=== PATIENT | female | born 1935 | race Caucasian/White ===

== ENCOUNTER → 2017-09-05 | Outpatient (CLI) | payer MEDICARE, BC | END | disposition home or self-care (01) | LOC: LABWHC1 12:47 | PROVIDERS: ATTEND Internal Medicine Nephrology | DX: E03.9 Hypothyroidism, unspecified (principal) | CPT/HCPCS: 36415; 84443 ==

== ENCOUNTER → 2020-11-10 | Outpatient (CLI) | payer MEDICARE, BC | END | disposition home or self-care (01) | LOC: LABWHC1 13:14 | PROVIDERS: ATTEND Internal Medicine Nephrology | DX: Z53.9 Procedure and treatment not carried out, unspecified reason (principal) ==

== ENCOUNTER 2023-05-20 08:55 | Inpatient (IN) | payer MEDICARE, BC ==
[2023-05-20] MEDS ORDERED: HEPARIN SODIUM 1,000 UN/ML (10ML VL) IV PRN (09:24)
--- NOTE | 2023-05-20 09:30 | ED ---
Weakness HPI - General Chief complaint: Weakness Stated complaint: Weakness, AMA Time Seen by Provider: 05/20/23 09:06 Source: patient, family, RN notes reviewed Mode of arrival: wheelchair Limitations: altered mental status - History of Present Illness Initial comments: This is an 87-year-old female who presents to the emergency department for weakness. Patient presents with her , who provides the majority of the information. States that her mental status has been declining over the last few years and she is becoming more and more confused. However, over the last couple of days she has been sleeping more than normal and is also incontinent, which is not usual for her. She does also have some swelling in her right leg which started yesterday. Patient denies any chest pain or shortness of breath. States that the leg is only painful when pressed. MD Complaint: generalized weakness - Related Data Home Medications Medication Instructions Recorded Confirmed Atorvastatin [Lipitor] 20 mg PO DAILY 06/07/22 05/20/23 Estrogen,Con/M-Progest Acet 0.5 tab PO DAILY 06/07/22 05/20/23 [Prempro 0.3 mg-1.5 mg Tablet] Famotidine [Pepcid] 20 mg PO DAILY 06/07/22 05/20/23 Levothyroxine Sodium [Synthroid] 25 mcg PO Q2D 06/07/22 05/20/23 Levothyroxine Sodium [Synthroid] 50 mcg PO Q2D 06/07/22 05/20/23 Losartan [Cozaar] 50 mg PO DAILY 06/07/22 05/20/23 Allergies Allergy/AdvReac Type Severity Reaction Status Date / Time morphine AdvReac Nausea & Verified 05/20/23 09:42 Vomiting Review of Systems ROS Statement: Those systems with pertinent positive or pertinent negative responses have been documented in the HPI. ROS Other: All systems not noted in ROS Statement are negative. Past Medical History Past Medical History: Cancer, Hyperlipidemia, Hypertension Past Surgical History: Joint Replacement Additional Past Surgical History / Comment(s): bilat mastectomy Past Psychological History: No Psychological Hx Reported Smoking Status: Never smoker Past Alcohol Use History: None Reported Past Drug Use History: None Reported General Exam Limitations: altered mental status General appearance: alert, in no apparent distress Head exam: Present: atraumatic, normocephalic, normal inspection Respiratory exam: Present: normal lung sounds bilaterally. Absent: respiratory distress, wheezes, rales, rhonchi, stridor Cardiovascular Exam: Present: tachycardia, irregular rhythm Extremities exam: Present: other (Pitting edema to the bilateral lower extremities, worse on the right, with calf tenderness.) Neurological exam: Present: alert, oriented X3, CN II-XII intact Psychiatric exam: Present: normal affect, normal mood Skin exam: Present: warm, dry, intact, normal color. Absent: rash Course Vital Signs 05/20/23 05/20/23 09:01 12:42 Temperature 97.6 F Pulse Rate 170 H 107 H Respiratory 18 20 Rate Blood Pressure 112/68 114/87 O2 Sat by Pulse 99 100 Oximetry Medical Decision Making - Medical Decision Making This is an 87-year-old female who presents to the emergency department for weakness. Was pt. sent in by a medical professional or institution? @ -No Did you speak to anyone other than the patient for history? @ -Her provided the majority of the information. Did you review nursing and triage notes? @ -Yes, and I agree, it is accurate with regards to the patient's symptoms. Were old charts reviewed? @ -No Differential Diagnosis? @ -Differential Weakness: Hypoglycemia, shock, sepsis, hyponatremia, anemia, infection, DE, ETOH, adverse medicine reaction, overdose, stroke, this is not meant to be an all-inclusive list. EKG interpreted by me (3pts min.)? @ -EKG interpreted by me demonstrating the following: Atrial fibrillation with rapid ventricular response. Ventricular rate 155 bpm, QRS duration 80 ms, QTC 349 ms. X-rays interpreted by me (1pt min.)? @ -Chest x-ray obtained, my interpretation identifies no localized consolidations or infiltrates. CT interpreted by me (1pt min.)? @ -CTA of the chest obtained. My interpretation identifies no evidence of a pulmonary embolus. U/S interpreted by me (1pt. min.)? @ -Duplex US of the bilateral lower extremities obtained. My interpretation identifies no evidence of a DVT. What testing was considered but not performed? (CT, X-rays, U/S, labs)? Why? @ -None What meds were considered but not given? Why? @ -None Did you discuss the management of the patient with other professionals? @ -Yes, Dr. Arthur, who accepts the patient for admission. Did you reconcile home meds? @ -Yes Was smoking cessation discussed for >3mins.? @ -No Was critical care preformed (if so, how long)? @ -Yes, >35 minutes Were there social determinants of health that impacted care today? How? (Homelessness, low income, unemployed, alcoholism, drug addiction, transportation, low edu. Level, literacy, decrease access to med. care, assisted, rehab)? @ -No Was there de-escalation of care discussed even if they declined? (Discuss DNR or withdrawal of care, Hospice)? @ -No What co-morbidities impacted this encounter? (DM, HTN, Smoking, COPD, CAD, Cancer, CVA, Hep., AIDS, mental health diagnosis, sleep apnea, morbid obesity)? @ -HTN, HLD Was patient admitted / discharged? @ -Admitted. Patient in a-fib with RVR on arrival with her heart rate ranging from 150-175 BPM. Patient has no hx of a-fib and is not taking any blood thinners. Lab work demonstrates an elevated d-dimer of 1.43, elevated troponin of 0.44, and low magnesium of 1.2. Chest x-ray obtained demonstrating no acute cardiopulmonary process. Duplex ultrasound of the bilateral lower extremities obtained due to the swelling. No evidence of a DVT or other acute process was identified. CTA of the chest was obtained as well due to her symptoms and the new onset A. fib with RVR. No evidence of a pulmonary embolus was identified. She was given 400 mg of magnesium oxide and 2 grams of magnesium sulfate for the hypomagnesemia. Patient admitted to medicine for new onset a-fib and a-fib with RVR. She was also started on Cardizem and heparin drips. Serial troponins ordered and consult placed for cardiology. Consult placed for neurology as well per her family's request based on patient having increasing confusion and their concern for dementia. Undiagnosed new problem with uncertain prognosis? @ -None Drug Therapy requiring intensive monitoring for toxicity (Heparin, Nitro, Insulin, Cardizem)? @ -Cardizem and heparin Were any procedures done? @ -None Diagnosis/symptom? @ -New onset a-fib, a-fib with RVR, hypomagnesemia Acute, or Chronic, or Acute on Chronic? @ -Acute Uncomplicated (without systemic symptoms) or Complicated (systemic symptoms)? @ -Complicated Side effects of treatment? @ -None Exacerbation, Progression, or Severe Exacerbation] @ -Not applicable Poses a threat to life or bodily function? @ -Yes This case was discussed in detail with the attending ED physician, Dr. Ellis. Presentation, findings, and treatment plan discussed in detail as well. - Lab Data Result diagrams: 05/20/23 09:27 05/20/23 09:27 Lab Results 05/20/23 05/20/23 05/20/23 Range/Units 09:27 09: 09:27 WBC 8.0 (3.8-10.6) k/uL RBC 4.01 (3.80-5.40) m/uL Hgb 12.8 (11.4-16.0) gm/dL Hct 38.7 (34.0-46.0) % MCV 96.5 (80.0-100.0) fL MCH 32.0 (25.0-35.0) pg MCHC 33.1 (31.0-37.0) g/dL RDW 12.2 (11.5-15.5) % Plt Count 370 (150-450) k/uL MPV 7.8 Neutrophils % 64 % Lymphocytes % 22 % Monocytes % 8 % Eosinophils % 2 % Basophils % 1 % Neutrophils # 5.1 (1.3-7.7) k/uL Lymphocytes # 1.8 (1.0-4.8) k/uL Monocytes # 0.6 (0-1.0) k/uL Eosinophils # 0.2 (0-0.7) k/uL Basophils # 0.1 (0-0.2) k/uL PT 10.8 (10.0-12.5) sec INR 1.0 (<1.2) APTT 21.2 L (22.0-30.0) sec D-Dimer 1.43 H (<0.60) mg/L FEU Sodium 138 (137-145) mmol/L Potassium 3.8 (3.5-5.1) mmol/L Chloride 103 (98-107) mmol/L Carbon Dioxide 24 (22-30) mmol/L Anion Gap 11 mmol/L BUN 29 H (7-17) mg/dL Creatinine 1.05 H (0.52-1.04) mg/dL Est GFR (CKD-EPI)AfAm 56 (>60 ml/min/1.73 sqM) Est GFR (CKD-EPI)NonAf 49 (>60 ml/min/1.73 sqM) Glucose 123 H (74-99) mg/dL Plasma Lactic Acid Vincenzo (0.7-2.0) mmol/L Calcium 12.3 H (8.4-10.2) mg/dL Phosphorus (2.5-4.5) mg/dL Magnesium (1.6-2.3) mg/dL Total Bilirubin 0.7 (0.2-1.3) mg/dL AST 43 H (14-36) U/L ALT 30 (4-34) U/L Alkaline Phosphatase 53 (38-126) U/L Troponin I (0.000-0.034) ng/mL Total Protein 7.0 (6.3-8.2) g/dL Albumin 4.3 (3.5-5.0) g/dL 05/20/23 05/20/23 05/20/23 Range/Units 09:27 09:27 09:27 WBC (3.8-10.6) k/uL RBC (3.80-5.40) m/uL Hgb (11.4-16.0) gm/dL Hct (34.0-46.0) % MCV (80.0-100.0) fL MCH (25.0-35.0) pg MCHC (31.0-37.0) g/dL RDW (11.5-15.5) % Plt Count (150-450) k/uL MPV Neutrophils % % Lymphocytes % % Monocytes % % Eosinophils % % Basophils % % Neutrophils # (1.3-7.7) k/uL Lymphocytes # (1.0-4.8) k/uL Monocytes # (0-1.0) k/uL Eosinophils # (0-0.7) k/uL Basophils # (0-0.2) k/uL PT (10.0-12.5) sec INR (<1.2) APTT (22.0-30.0) sec D-Dimer (<0.60) mg/L FEU Sodium (137-145) mmol/L Potassium (3.5-5.1) mmol/L Chloride (98-107) mmol/L Carbon Dioxide (22-30) mmol/L Anion Gap mmol/L BUN (7-17) mg/dL Creatinine (0.52-1.04) mg/dL Est GFR (CKD-EPI)AfAm (>60 ml/min/1.73 sqM) Est GFR (CKD-EPI)NonAf (>60 ml/min/1.73 sqM) Glucose (74-99) mg/dL Plasma Lactic Acid Vincenzo 1.6 (0.7-2.0) mmol/L Calcium (8.4-10.2) mg/dL Phosphorus 3.7 (2.5-4.5) mg/dL Magnesium 1.2 L (1.6-2.3) mg/dL Total Bilirubin (0.2-1.3) mg/dL AST (14-36) U/L ALT (4-34) U/L Alkaline Phosphatase (38-126) U/L Troponin I 0.444 H* (0.000-0.034) ng/mL Total Protein (6.3-8.2) g/dL Albumin (3.5-5.0) g/dL - Radiology Data Radiology results: report reviewed, image reviewed Disposition Clinical Impression: Confusion, Atrial fibrillation with rapid ventricular response, New onset a-fib Disposition: ADMITTED IP TO THIS [facility] Time of Disposition: 11:24
[2023-05-20 09:31] LABS: Basophils # (A) 0.1 k/uL (0-0.2); Basophils % (A) 1 %; Eosinophils # (A) 0.2 k/uL (0-0.7); Eosinophils % (A) 2 %; HCT 38.7 % (34.0-46.0); HGB 12.8 gm/dL (11.4-16.0); Lymphocytes # (A) 1.8 k/uL (1.0-4.8); Lymphocytes % (A) 22 %; MCHC 33.1 g/dL (31.0-37.0); MCV 96.5 fL (80.0-100.0); Mean Platelet Volume 7.8; Monocytes # (A) 0.6 k/uL (0-1.0); Monocytes % (A) 8 %; Neutrophils # (A) 5.1 k/uL (1.3-7.7); Neutrophils % (A) 64 %; Platelet Count 370 k/uL (150-450); RBC 4.01 m/uL (3.80-5.40); RDW 12.2 % (11.5-15.5)
[2023-05-20 09:43] LABS: ALT 30 U/L (4-34); AST 43 U/L (14-36); African American GFR (CKD) 56 (>60 ml/min/1.73 sqM); Albumin 4.3 g/dL (3.5-5.0); Alkaline Phosphatase 53 U/L (38-126); Anion Gap 11 mmol/L; Blood Urea Nitrogen 29 mg/dL (7-17); Calcium 12.3 mg/dL (8.4-10.2); Carbon Dioxide 24 mmol/L (22-30); Chloride 103 mmol/L (98-107); Glucose 123 mg/dL (74-99); Non-African American GFR(CKD) 49 (>60 ml/min/1.73 sqM); Potassium 3.8 mmol/L (3.5-5.1); Sodium 138 mmol/L (137-145); Total Bilirubin 0.7 mg/dL (0.2-1.3)
[2023-05-20 09:50] LABS: Prothrombin Time 10.8 sec (10.0-12.5)
[2023-05-20 09:52] LABS: Partial Thromboplastin Time 21.2 sec (22.0-30.0)
[2023-05-20] MEDS: DILTIAZEM 125 MG in SODIUM CHLORIDE 0.9% 100 ML IV SCH (09:54)
[2023-05-20] MEDS: DILTIAZEM DRIP BOLUS FROM BAG 1 MG SOLN IV ONE (09:56)
--- NOTE | 2023-05-20 10:02 | XR ---
EXAMINATION TYPE: XR chest 2V DATE OF EXAM: 05/20/2023 COMPARISON: None HISTORY: 87-year-old female with weakness and elevated blood pressure TECHNIQUE: AP and lateral views FINDINGS: Heart normal size. Aorta within normal limits. There may be calcified AP window lymph nodes suggestin g prior granulomatous disease. Mild interstitial prominence has a chronic appearance. No consolidatio n or pleural effusion. Rotator cuff arthropathy on the right. Narrowing of the subacromial space also on the left side suggesting full-thickness rotator cuff tear. IMPRESSION: 1. No acute cardiopulmonary process. 2. Bilateral full-thickness rotator cuff tears with rotator cuff arthropathy on the right.
[2023-05-20 10:44] LABS: Magnesium 1.2 mg/dL (1.6-2.3); Phosphorus 3.7 mg/dL (2.5-4.5)
[2023-05-20] MEDS: HEPARIN SOD,PORK IN 0.45% NACL 25,000 UNIT in 0.45% NACL 1 250ML.BAG IV SCH (10:56)
[2023-05-20] MEDS: HEPARIN SODIUM 1,000 UN/ML (10ML VL) IV ONE (10:58)
[2023-05-20] MEDS: SODIUM CHLORIDE 0.9% 1,000 ML IV STA (11:01)
--- NOTE | 2023-05-20 11:09 | CT ---
EXAMINATION TYPE: CT chest angio for PE CT DLP: 212.5 mGycm, Automated exposure control for dose reduction was used. DATE OF EXAM: 05/20/2023 10:57 AM COMPARISON: Chest radiograph from same day. CLINICAL INDICATION:Female, 87 years old with history of Weakness, tachycardia, elevated d-dimer; obie vated d-dimer TECHNIQUE/CONTRAST: CTA scan of the thorax is performed with IV Contrast, patient injected with 80 mL of Isovue 300, MIP images are created and reviewed these are created on a separate workstation.. FINDINGS: Pulmonary Artery: There is no evidence for a filling defect within the pulmonary vasculature to sugge st acute pulmonary embolism. The pulmonary artery is of normal size. Lungs/Pleura: Left upper lung calcified granuloma. No evidence of focal consolidation, pleural effusi on or pneumothorax. Airway: Large airways are patent. Heart: Heart is within normal limits for size. Atherosclerosis of the coronary arteries. Vasculature: No evidence of aortic aneurysm. Mediastinum: No gross evidence of adenopathy. Partially calcified lymph nodes in the mediastinum. Musculoskeletal: Moderate degenerative disc disease changes are present throughout the thoracolumbar spine. Suture degeneration changes of the shoulders with joint on joint articulation on the right. Thacker bchondral cystic changes also present. Soft Tissues: Bilateral breast implants with suspected left breast prosthesis malfunction with intrac apsular fluid between 2 layers of prosthesis.. Lower neck: No significant findings. Upper Abdomen: Scattered calcified granulomas are seen in the spleen and liver. IMPRESSION: 1. No evidence of pulmonary embolism. 2. Bilateral breast implants with abnormal appearance of the left breast prosthesis possibly relating to intracapsular malfunction 3. Evidence of chronic granulomatous disease within the spleen, liver and, lungs and mediastinum.
--- NOTE | 2023-05-20 11:15 | US ---
EXAMINATION TYPE: US venous doppler duplex LE BI DATE OF EXAM: 05/20/2023 9:23 AM COMPARISON: NONE CLINICAL INDICATION: Female, 87 years old with history of LE pain and swelling; Right leg pain, bilat eral leg swelling, patient on blood thinners SIDE PERFORMED: Bilateral TECHNIQUE: The lower extremity deep venous system is examined utilizing real time linear array sonog jackie with graded compression, doppler sonography and color-flow sonography. VESSELS IMAGED: Common Femoral Vein Deep Femoral Vein Greater Saphenous Vein * Femoral Vein Popliteal Vein Small Saphenous Vein * Proximal Calf Veins (* superficial vessels) Right Leg: Appears negative for DVT Left Leg: Appears negative for DVT IMPRESSION: Grayscale, color doppler, spectral doppler imaging performed of the deep veins of the lo wer extremities. There is normal flow, compressibility, vascular waveforms.
[2023-05-20] MEDS ORDERED: NALOXONE 0.4 MG/ML 1 ML VIAL IV PRN (11:22)
[2023-05-20] MEDS ORDERED: HYDROcodone/APAP 5-325MG 1 EACH TAB PO PRN (11:22)
[2023-05-20] MEDS ORDERED: ONDANSETRON 4 MG/2 ML VIAL IVP PRN (11:22)
[2023-05-20] MEDS ORDERED: ACETAMINOPHEN TAB 325 MG TAB PO PRN (11:22)
[2023-05-20] MEDS: MAGNESIUM OXIDE 400 MG TAB PO STA (12:35)
[2023-05-20] MEDS: MAGNESIUM SULFATE-D5W PMX 1 GM in DEXTROSE/WATER 1 100ML.BAG IVPB SCH (12:38)
--- NOTE | 2023-05-20 17:53 | P.CNNES ---
History of Present Illness Consult date: 05/20/23 Requesting physician: Loli Barba Reason for Consult: Increasing confusion History of Present Illness: Patient is a 87-year-old right-handed female with history of breast cancer currently in remission, bilateral mastectomy, and recent right femoral fracture, came to the hospital this morning at 8:55 AM for leg swelling and a drainage from surgical scar. Patient's provided most of the history. He mentions that about a week ago patient developed swelling of the legs. She laid down, elevated her legs and the swelling went away. The swelling came back yesterday. Patient has history of right spiral fracture of the femur on 05/29/2023 when she was visiting [facility]. She was at the restaurant, sitting at the dinner table, when she got up from the table and fell producing spiral fracture of the right femur. Patient underwent surgery at [facility]. Patient did bruise on the right side but it improved. However she has been having swelling of the leg. One of the hole where she had stitches started weeping therefore they came to the hospital. Neurology was consulted for memory loss. Patient's mentions that her memory has been going downhill for last 2 to 3 years. It is getting worse. Patient's brother in February and she forgot her brother. She mixes up names in the family. She does repeat on herself and forgets what was told. Patient declines all these allegations that patient's has mentioned, stating he is "exaggerating". No previous history of strokes or CVA. Patient had an appointment with neurologist at [facility] couple years ago to check for memory functions, but patient declined to be seen. Patient's mentions that she has been very tired, napping a lot and lately she is more confused. Patient's states that she gets angry a lot of times. There is a buckle sewer machine that comes and cleans the house and cooks most of the time. Patient again said that he is "exaggerating". Patient has never smoked tobacco, drinks alcohol once in a great while. No blood pressure or diabetes. Vital signs on arrival blood pressure 112/68, pulse rate 170 temperature 97.6. Blood test shows normal CBC, normal PT PTT, electrolytes are normal, BUN 29 creatinine 1.05. AST 43 ALT 30. Troponins are mildly elevated 0.444. TSH is normal 2.89. Patient has been started on heparin by cardiology. EKG shows atrial fibrillation with rapid ventricular rate. Chest x-ray showed no acute process. Bilateral full-thickness rotator cuff tears with rotator cuff arthropathy on the right. CTA of the chest shows no evidence of pulmonary embolism. Bilateral breast implants with abnormal appearance of the left breast prosthesis possibly relating to intracapsular malfunction. Evidence of chronic granulomatous disease within the spleen, liver and lungs and mediastinum. Venous Doppler of the lower extremities negative for DVT bilaterally. Review of Systems Constitutional: Reports weight loss, Denies chills, Denies fever Eyes: bilateral blurred vision (off and on), denies diplopia, denies pain Ears, nose, mouth and throat: Denies headache, Denies sore throat, Denies vertigo Cardiovascular: Denies chest pain, Denies lightheadedness, Denies shortness of breath Respiratory: Denies cough, Denies excessive sputum Gastrointestinal: Denies abdominal pain, Denies diarrhea, Denies nausea, Denies vomiting Genitourinary: Reports urge incontinence, Denies dysuria Musculoskeletal: Reports low back pain, Denies myalgias, Denies neck pain Integumentary: Denies pruritus, Denies rash Neurological: Reports as per HPI Psychiatric: Reports mood swings, Denies anxiety, Denies depression Endocrine: Reports fatigue, Reports weight change Hematologic/Lymphatic: Reports easy bruising, Denies easy bleeding Past Medical History Past Medical History: Cancer, Hyperlipidemia, Hypertension Past Surgical History: Joint Replacement Additional Past Surgical History / Comment(s): bilat mastectomy Past Psychological History: No Psychological Hx Reported Smoking Status: Never smoker Past Alcohol Use History: None Reported Past Drug Use History: None Reported Medications and Allergies Home Medications Medication Instructions Recorded Confirmed Type Atorvastatin [Lipitor] 20 mg PO DAILY 06/07/22 05/20/23 History Estrogen,Con/M-Progest Acet 0.5 tab PO DAILY 06/07/22 05/20/23 History [Prempro 0.3 mg-1.5 mg Tablet] Famotidine [Pepcid] 20 mg PO DAILY 06/07/22 05/20/23 History Levothyroxine Sodium [Synthroid] 25 mcg PO Q2D 06/07/22 05/20/23 History Levothyroxine Sodium [Synthroid] 50 mcg PO Q2D 06/07/22 05/20/23 History Losartan [Cozaar] 50 mg PO DAILY 06/07/22 05/20/23 History Allergies Allergy/AdvReac Type Severity Reaction Status Date / Time morphine AdvReac Nausea & Verified 05/20/23 09:42 Vomiting Physical Examination - Vital Signs Vital Signs: Vital Signs Temp Pulse Resp BP Pulse Ox 05/20/23 12:42 107 H 20 114/87 100 05/20/23 09:01 97.6 F 170 H 18 112/68 99 Intake and Output 05/19/23 05/20/23 05/20/23 22:59 06:59 14:59 Other: Weight 43.091 kg Patient is an elderly female, very pleasant, in no acute distress. Patient is alert awake. Patient states it is April and the year is 1923 and fall season. Patient knows it is Tuesday. She states that she is in [facility]. She states she is in a hotel, and looked at the board and then said "[facility]". On asking the 80s, patient was not sure and said was 86 or 87 and would frequently look at her to try to get the help. She could not tell name of the president although with prompts she was able to tell Biden. Speech and language functions are normal. Patient can name and repeat very well. No aphasia or dysarthria. Attention, concentration is intact and fund of knowledge is slightly limited. Patient has positive palmomental reflex bilaterally, somewhat positive visual spatial apraxia, as she was not able to complete the task. On cranial nerve examination, pupils are equal, round and reacting to light, visual johnston are full on confrontation, with no neglect on double simultaneous stimulation. Extraocular muscles are intact with no nystagmus. Face is symmetric, tongue protrudes to the midline. Palatal elevation and sensation normal, hearing is moderate to severely decreased and shoulder shrug normal, facial sensation normal. On muscle strength testing, there is no pronator drift and the strength is normal in arms distally and proximally. Her strength at the ankles are normal. Hip flexion is fairly normal on the left, not checked on the right because of recent surgery. Deep tendon reflexes are symmetric 2 at the biceps, 2 brachioradialis, 1 at the knees and plantars downgoing bilaterally. Sensory to touch is equal with no neglect on double simultaneous stimulation. Cerebellar function showed no ataxia for [id number] testing. No dysdiadochokinesia. No ataxia for [id number] testing on either side. Tone and bulk of muscles normal. Gait deferred.. On general examination, there is no carotid bruit or murmur, S1-S2 audible. Chest is clear on consultation. Abdomen is soft nontender. No organomegaly, brandee wel sounds present. Patient has mild to moderate peripheral edema. Results - Laboratory Findings CBC and BMP: 05/20/23 09:27 05/20/23 09:27 Abnormal Lab Findings: Abnormal Labs 05/20/23 05/20/23 05/20/23 09:27 09: 09:27 APTT 21.2 L D-Dimer 1.43 H BUN 29 H Creatinine 1.05 H Glucose 123 H Calcium 12.3 H Magnesium AST 43 H Troponin I 0.444 H* 05/20/23 09:27 APTT D-Dimer BUN Creatinine Glucose Calcium Magnesium 1.2 L AST Troponin I Assessment and Plan Assessment: * Memory disturbance for last 2 to 3 years, getting worse. Patient is somewhat disoriented, as she said it was the fall season and that she is in a hotel. Although patient could have delirium from acute medical conditions, but because of duration of symptoms, underlying mild cognitive impairment or early dementia is definitely a concern. * New onset atrial fibrillation with rapid ventricular rate * Elevated cardiac enzymes * Hard of hearing * Mild renal insufficiency * Borderline liver enzymes with AST 43, normal ALT * Recent right femoral spiral fracture 05/29/2023 status post surgery. Plan: * Patient probably has acute delirium. Cannot rule out underlying mild cognit sandra impairment/early dementia. However I would recommend patient to be seen by neurologist as an outpatient basis, once her acute medical conditions have subsided, for better evaluation of baseline cognitive functions. At this time cannot diagnose MCI or dementia because of multiple acute conditions. * Patient is already taking B12 supplementation for years, therefore no need to check. * I did order CT scan of the head and the carotid Doppler but patient completely declined for any testing. * Dr. Huynh will be available for neurology service over the weekend. * Thank you for the consult.
[2023-05-20 20:15] LABS: Chol/HDL Ratio 2.49 Ratio; LDL Cholesterol,Calculated 61.9 mg/dL (0.0-131.0)
[2023-05-20 22:33] LABS: Appearance,Urine Cloudy (Clear); Bilirubin,Urine Negative (Negative); Blood,Urine Negative (Negative); Color,Urine Colorless; Glucose,Urine (UA) Negative (Negative); Ketones,Urine Negative (Negative); Leukocyte Esterase,Urine Negative (Negative); Mucus,Urine Rare /hpf; Nitrite,Urine Negative (Negative); PH, Urine 5.5 (5.0-8.0); Protein,Urine Negative (Negative); RBC,Urine 1 /hpf (0-5); Specific Gravity,Urine 1.036 (1.001-1.035); Squamous Epithelial Cell,Urine 1 /hpf (0-4); Urobilinogen,Urine <2.0 mg/dL (<2.0); WBC,Urine 2 /hpf (0-5)
--- NOTE | 2023-05-21 01:38 | P.HPIM ---
History of Present Illness H&P Date: 05/20/23 Chief Complaint: Generalized weakness Patient is a 87-year-old female with a past medical history of hypertension, hyperlipidemia, history of breast cancer is post bilateral mastectomy, recent history of right femoral neck spiral fracture was brought to the hospital by her due to complaints of generalized weakness, confusion. Regarding her patient was mental status has been declining over the past few years and is getting more confused recently. Patient has been sleeping more than normal and is not responding appropriately which is unusual for her. Patient is also having right lower extremity swelling mainly behind the knee. Denied any fever or chills. No cough or sputum production. No nausea vomiting abdominal pain or diarrhea. Denies any chest pain or shortness of breath. Chest x-ray showed no acute cardiopulmonary process. Bilateral full-thickness rotator cuff tears with rotator cuff arthropathy on the right. EKG showed atrial fibrillation with rapid ventricular response. CTA chest showed no evidence of PE. Bilateral breast implants with abnormal appearance of the left breast process possibly relating to intracapsular malfunction. Evidence of chronic granulomatous disease within the spleen liver and lungs and mediastinum. Laboratory data showed sodium 138 potassium 3.8, bicarb is 24 BUN 29 creatinine 1.05, blood sugar is 123, magnesium 1.2 Troponin 0.44, 0.4-1 and 0.429 Review of Systems Constitutional: Patient denies any fever or chills . Patient does have generalized weakness. Denied weight loss. Abdomen: Patient denied nausea vomiting and diarrhea and abdominal pain. Cardiovascular: Patient denies any chest pain. Minimal short of breath. Denied no palpitations. Right leg swelling more than left. Respiratory: patient denied any cough is from production. Does have shortness of breath Neurologic: Patient denied any numbness or tingling headache. Musculoskeletal: Patient denies any complaints of joint swelling or deformity. Complete review of systems could not be obtained from the patient. Past Medical History Past Medical History: Cancer, Hyperlipidemia, Hypertension Past Surgical History: Joint Replacement Additional Past Surgical History / Comment(s): bilat mastectomy Past Psychological History: No Psychological Hx Reported Smoking Status: Never smoker Past Alcohol Use History: None Reported Past Drug Use History: None Reported Medications and Allergies Home Medications Medication Instructions Recorded Confirmed Type Atorvastatin [Lipitor] 20 mg PO DAILY 06/07/22 05/20/23 History Estrogen,Con/M-Progest Acet 0.5 tab PO DAILY 06/07/22 05/20/23 History [Prempro 0.3 mg-1.5 mg Tablet] Famotidine [Pepcid] 20 mg PO DAILY 06/07/22 05/20/23 History Levothyroxine Sodium [Synthroid] 25 mcg PO Q2D 06/07/22 05/20/23 History Levothyroxine Sodium [Synthroid] 50 mcg PO Q2D 06/07/22 05/20/23 History Losartan [Cozaar] 50 mg PO DAILY 06/07/22 05/20/23 History Allergies Allergy/AdvReac Type Severity Reaction Status Date / Time morphine AdvReac Nausea & Verified 05/20/23 09:42 Vomiting Physical Exam Vitals: Vital Signs Temp Pulse Resp BP Pulse Ox 05/20/23 12:42 107 H 20 114/87 100 05/20/23 09:01 97.6 F 170 H 18 112/68 99 Intake and Output 05/19/23 05/20/23 05/20/23 22:59 06:59 14:59 Other: Weight 43.091 kg PHYSICAL EXAMINATION: Patient is lying in the bed comfortably, no acute distress, awake alert but disoriented and hard of hearing.. HEENT: Normocephalic. Neck is supple. Pupils reactive. Nostrils clear. Oral cavity is moist. Neck reveals no JVD, carotid bruits, or thyromegaly. CHEST EXAMINATION: Trachea is central. Symmetrical expansion. Lung johnston clear to auscultation and percussion. CARDIAC: Normal S1, S2 with no gallops. No murmurs. Irregularly irregular rhythm. ABDOMEN: Soft. Bowel sounds normal. No organomegaly. No abdominal bruits. Extremities: Right lower extremity trace edema. No clubbing or cyanosis Neurologically awake, alert, oriented x 1-2 able to move all extremities.. No gross focal deficits noted Skin: No rash or skin lesions. Psychiatric: Coperative. Could not be assessed completely Musculoskeletal: No joint swelling or deformity. Normal range of motion. Results CBC & Chem 7: 05/23/23 08:01 05/23/23 08:01 Labs: Abnormal Lab Results - Last 24 Hours (Table) 05/20/23 05/20/23 05/20/23 Range/Units 09:27 09:27 09:27 APTT 21.2 L (22.0-30.0) sec D-Dimer 1.43 H (<0.60) mg/L FEU BUN 29 H (7-17) mg/dL Creatinine 1.05 H (0.52-1.04) mg/dL Glucose 123 H (74-99) mg/dL Calcium 12.3 H (8.4-10.2) mg/dL Magnesium (1.6-2.3) mg/dL AST 43 H (14-36) U/L Troponin I 0.444 H* (0.000-0.034) ng/mL 24 05/20/23 Range/Units 09:27 13:05 APTT (22.0-30.0) sec D-Dimer (<0.60) mg/L FEU BUN (7-17) mg/dL Creatinine (0.52-1.04) mg/dL Glucose (74-99) mg/dL Calcium (8.4-10.2) mg/dL Magnesium 1.2 L (1.6-2.3) mg/dL AST (14-36) U/L Troponin I 0.421 H* (0.000-0.034) ng/mL Thrombosis Risk Factor Assmnt - DVT/VTE Prophylaxis DVT/VTE Prophylaxis: Pharmacologic Prophylaxis ordered Assessment and Plan Assessment: New onset atrial fibrillation with rapid ventricular response Generalized weakness could be due to dehydration volume depletion Worsening confusion and forgetfulness with underlying cognitive impairment Elevated troponin level likely due to A-fib with RVR/demand ischemia Hypomagnesemia Hypercalcemia likely due to dehydration. Follow-up repeat level Patient history of right femoral neck spiral fracture. As per surgery Right lower extremity swelling DVT Hypertension Hyperlipidemia History of breast cancer status post bilateral mastectomy GI prophylaxis Plan: Patient will be continued on daily monitoring. Follow-up serial EKG and troponin x 3. Patient does not have any chest pain currently. Continue with heparin drip and Cardizem drip. Cardiology consult. TSH level was ordered. Neurology consult due to worsening cognitive impairment. Replace electrolytes. Discussed with her and the patient at bedside in detail. Time with Patient: Greater than 30
[2023-05-21] MEDS: MAGNESIUM SULFATE-D5W PMX 1 GM in DEXTROSE/WATER 1 100ML.BAG IVPB SCH (02:02)
[2023-05-21] MEDS: LEVOTHYROXINE 25 MCG TAB PO SCH (06:22)
[2023-05-21] MEDS: NON FORMULARY DRUG (Estrogen,Con/M-Progest Acet [Prempro 0.3 Mg-1.5 Mg Tablet] 1 EACH Tabl PO SCH (08:18)
[2023-05-21] MEDS: ATORVASTATIN 20 MG TAB PO SCH (08:19)
[2023-05-21] MEDS: LOSARTAN 50 MG TAB PO SCH (08:19)
[2023-05-21] MEDS: FAMOTIDINE 20 MG TAB PO SCH (08:19)
[2023-05-21 11:39] LABS: Basophils # (A) 0.1 k/uL (0-0.2); Basophils % (A) 1 %; Eosinophils # (A) 0.1 k/uL (0-0.7); Eosinophils % (A) 2 %; HCT 34.1 % (34.0-46.0); HGB 11.1 gm/dL (11.4-16.0); Lymphocytes # (A) 1.7 k/uL (1.0-4.8); Lymphocytes % (A) 21 %; MCH 31.7 pg (25.0-35.0); MCHC 32.6 g/dL (31.0-37.0); MCV 97.1 fL (80.0-100.0); Mean Platelet Volume 8.9; Monocytes # (A) 0.6 k/uL (0-1.0); Monocytes % (A) 8 %; Neutrophils # (A) 5.3 k/uL (1.3-7.7); Neutrophils % (A) 67 %; Platelet Count 344 k/uL (150-450); RBC 3.51 m/uL (3.80-5.40); RDW 12.3 % (11.5-15.5); WBC 7.9 k/uL (3.8-10.6)
[2023-05-21 11:53] LABS: African American GFR (CKD) 68 (>60 ml/min/1.73 sqM); Anion Gap 7 mmol/L; Blood Urea Nitrogen 19 mg/dL (7-17); Calcium 10.4 mg/dL (8.4-10.2); Carbon Dioxide 21 mmol/L (22-30); Chloride 105 mmol/L (98-107); Glucose 114 mg/dL (74-99); Magnesium 2.4 mg/dL (1.6-2.3); Non-African American GFR(CKD) 59 (>60 ml/min/1.73 sqM); Potassium 3.5 mmol/L (3.5-5.1); Sodium 133 mmol/L (137-145)
[2023-05-21] MEDS: METOPROLOL TARTRATE 50 MG TAB PO SCH (12:07)
--- NOTE | 2023-05-21 13:20 | P.CRDCN ---
History of Present Illness Consult date: 05/21/23 Consult reason: atrial fibrillation History of present illness: This is Hang Camacho NP, I'm dictating on behalf of Dr. Galindo's H&P and A&P The patient was interviewed and examined. HPI: Patient is a pleasant 87-year-old female with a past medical history that includes hypertension, hyperlipidemia, breast cancer, right hip fracture, who w as brought to the hospital with complaints of generalized weakness and confusion. Patient's reports that her mental status has been declining over the last few months, and significantly quickly more recently. He states the patient has been sleeping a lot more and has been much weaker than normal. Upon arrival to the emergency department the patient was found to be in A-fib with RVR with a heart rate in the 170s. Troponins were elevated but flat. Cardiology was consulted for the A-fib with RVR, which is apparently a new diagnosis. Patient was interviewed this morning at the bedside with her , however reports that she has nothing wrong with her and she is ready to go home. reiterates the information from the emergency department, that she has been more weak lately and seemed to have more difficulty getting around including more shortness of breath. Upon evaluation of her telemetry she continues to be in atrial fibrillation with rapid ventricular response, heart rate is now in the 120s to 130s. Patient was started on a IV diltiazem drip in response to her initial A-fib, and it continues at this time. ROS: [No fever, chills, or rigors] [no cough, phlegm, or expectoration] [no nausea, vomiting, or diarrhea] [no hematuria, dysuria] [no musculoskelatal complaints] [no strokes or seizures] [no skin lesions] EXAMINATION: GENERAL: Well-appearing, well-nourished and in no acute distress. NECK: Supple without JVD or thyromegaly. LUNGS: Breath sounds clear to auscultation bilaterally. Respiration equal and unlabored. No wheezes, rales or rhonchi. HEART: Regular rate and rhythm without murmurs, rubs or gallops. S1 and S2 heard. EXTREMITIES: Normal range of motion, no edema. No clubbing or cyanosis. Peripheral pulses intact and strong. REVIEW OF LABS, ECG & MEDICAL DATA: LABS: White count 7.9, hemoglobin 11.1, platelets 344, D-dimer 1.43, sodium 133, potassium 3.5, BUN 19, creatinine 0.89, calcium 10.4, magnesium 2.4, troponin x 3, 0.44, 0.42, 0.42; triglycerides 148, cholesterol 153, LDL 61.9, HDL 61.5, vitamin B12 1643, folate 40, TSH 2.89 EKG: Atrial fibrillation with rapid ventricular response, heart rate 150s IMAGING: Chest x-ray dated 05/20/2023 shows no acute cardiopulmonary process, bilateral full-thickness rotator cuff tears with rotator cuff arthropathy on the right; CT angiogram of the chest dated 05/20/2023 demonstrates no evidence of pulmonary embolism, bilateral breast implants with abnormal appearance of the left breast prosthesis possibly relating to intracapsular malfunction, evidence of chronic granulomatous disease within the spleen, liver, and lungs and mediastinum. Venous Doppler study of the bilateral lower extremities dated 05/20/2023 shows negative for DVT bilaterally. VITALS: Temp 97.5, pulse 120, respirations 16, blood pressure 123/83, O2 saturation 94% on room air IMPRESSION: 1. A-fib with rapid ventricular response, new onset 2. Dementia 3. Hypothyroidism 4. Hypertension PLAN: Continue diltiazem drip at this time. Start metoprolol 50 mg twice daily. Continue losartan. Further recommendations based on patient's clinical course. Thank you for the consult and allowing us to participate in the care of this patient. Past Medical History Past Medical History: Cancer, Hyperlipidemia, Hypertension History of Any Multi-Drug Resistant Organisms: None Reported Past Surgical History: Joint Replacement Additional Past Surgical History / Comment(s): bilat mastectomy Past Psychological History: No Psychological Hx Reported Smoking Status: Never smoker Past Alcohol Use History: None Reported Past Drug Use History: None Reported Medications and Allergies Home Medications Medication Instructions Recorded Confirmed Type Atorvastatin [Lipitor] 20 mg PO DAILY 06/07/22 05/20/23 History Estrogen,Con/M-Progest Acet 0.5 tab PO DAILY 06/07/22 05/20/23 History [Prempro 0.3 mg-1.5 mg Tablet] Famotidine [Pepcid] 20 mg PO DAILY 06/07/22 05/20/23 History Levothyroxine Sodium [Synthroid] 25 mcg PO Q2D 06/07/22 05/20/23 History Levothyroxine Sodium [Synthroid] 50 mcg PO Q2D 06/07/22 05/20/23 History Losartan [Cozaar] 50 mg PO DAILY 06/07/22 05/20/23 History Allergies Allergy/AdvReac Type Severity Reaction Status Date / Time morphine AdvReac Nausea & Verified 05/20/23 09:42 Vomiting Physical Exam Vitals: Vital Signs Temp Pulse Pulse Resp BP BP Pulse Ox 05/21/23 12:06 97.5 F L 98 16 120/72 95 05/21/23 08:14 97.5 F L 120 H 16 123/83 94 L 05/21/23 03:35 89 16 110/67 96 05/21/23 00:00 107 H 16 159/63 97 05/20/23 20:00 97.9 F 90 16 124/73 98 05/20/23 16:08 97.4 F L 99 18 131/83 99 05/20/23 14:01 106 H 20 114/87 98 Intake and Output 05/20/23 05/21/23 05/21/23 22:59 06:59 14:59 Intake Total 540 625.917 Balance 540 625.917 Intake: Intake, IV Titration 85.917 Amount Diltiazem 125 mg In 85.917 Sodium Chloride 0.9% 100 ml @ 5 MG/HR 5 mls/hr IV .Q24H [facility] Rx#:[id number] Oral 540 540 Other: # Voids 2 1 1 Weight 43.091 kg Results 05/21/23 10:18 05/21/23 10:18 Cardiac Enzymes 05/20/23 05/20/23 Range/Units 13:05 16:58 Troponin I 0.421 H* 0.429 H* (0.000-0.034) ng/mL Coagulation 05/20/23 05/21/23 Range/Units 16:58 10:18 APTT 59.4 H 56.4 H (22.0-30.0) sec Lipids 05/20/23 Range/Units 13:05 Triglycerides 148.00 (0.00-149.00) mg/dL Cholesterol 153.00 (0.00-200.00) mg/dL HDL Cholesterol 61.50 H (40.00-60.00) mg/dL Cholesterol/HDL Ratio 2.49 Ratio CBC 05/21/23 Range/Units 10:18 WBC 7.9 (3.8-10.6) k/uL RBC 3.51 L (3.80-5.40) m/uL Hgb 11.1 L (11.4-16.0) gm/dL Hct 34.1 (34.0-46.0) % Plt Count 344 (150-450) k/uL Comprehensive Metabolic Panel 05/21/23 Range/Units 10:18 Sodium 133 L (137-145) mmol/L Potassium 3.5 (3.5-5.1) mmol/L Chloride 105 (98-107) mmol/L Carbon Dioxide 21 L (22-30) mmol/L BUN 19 H (7-17) mg/dL Creatinine 0.89 (0.52-1.04) mg/dL Glucose 114 H (74-99) mg/dL Calcium 10.4 H (8.4-10.2) mg/dL Current Medications Generic Name Dose Route Start Last Admin Trade Name Freq PRN Reason Stop Dose Admin Acetaminophen 650 mg 05/20/23 11:22 Acetaminophen Tab 325 Mg Tab PO Q6HR PRN Mild Pain or Fever > 100.5 Hydrocodone Bitart/Acetaminophen 1 each 05/20/23 11:22 Hydrocodone/Apap 5-325mg 1 Each Tab PO Q4HR PRN Moderate Pain (Scale 4 to 6) Atorvastatin Calcium 20 mg 05/21/23 09:00 05/21/23 08:19 Atorvastatin 20 Mg Tab PO 20 mg DAILY RAMOS Administration Famotidine 20 mg 05/21/23 09:00 05/21/23 08:19 Famotidine 20 Mg Tab PO 20 mg DAILY RAMOS Administration Heparin Sodium (Porcine) 0 unit 05/20/23 09:24 Heparin Sodium 1,000 Un/Ml (10ml Vl) IV PER PROTOCOL PRN Low PTT Protocol Diltiazem HCl 125 mg/ Sodium 125 mls @ 5 mls/hr 05/20/23 09:30 05/21/23 03:05 Chloride IV 5 mg/hr .Q24H RAMOS 5 mls/hr Administration 5 MG/HR Heparin Sodium/Sodium Chloride 250 mls @ 5.16 mls/hr 05/20/23 09:30 05/21/23 12:02 25,000 unit/ Sodium Chloride IV Not Given .Q24H RAMOS Protocol 12 UNITS/KG/HR Levothyroxine Sodium 25 mcg 05/21/23 06:30 05/21/23 06:22 Levothyroxine 25 Mcg Tab PO 25 mcg Q2D RAMOS Administration Levothyroxine Sodium 50 mcg 05/22/23 06:30 Levothyroxine 50 Mcg Tab PO Q2D RAMOS Losartan Potassium 50 mg 05/21/23 09:00 05/21/23 08:19 Losartan 50 Mg Tab PO 50 mg DAILY RAMOS Administration Metoprolol Tartrate 50 mg 05/21/23 12:00 05/21/23 12:07 Metoprolol Tartrate 50 Mg Tab PO 50 mg BID RAMOS Administration Naloxone HCl 0.2 mg 05/20/23 11:22 Naloxone 0.4 Mg/Ml 1 Ml Vial IV Q2M PRN Opioid Reversal Non-Formulary Medication 0.5 tab 05/21/23 09:00 05/21/23 08:18 Estrogen,Con/M-Progest Acet [Prempro 0.3 Mg-1.5 Mg Tablet] PO Not Given DAILY [facility] Ondansetron HCl 4 mg 05/20/23 11:22 Ondansetron 4 Mg/2 Ml Vial IVP Q8HR PRN Nausea And Vomiting Intake and Output 05/20/23 05/21/23 05/21/23 22:59 06:59 14:59 Intake Total 540 625.917 Balance 540 625.917 Intake: Intake, IV Titration 85.917 Amount Diltiazem 125 mg In 85.917 Sodium Chloride 0.9% 100 ml @ 5 MG/HR 5 mls/hr IV .Q24H [facility] Rx#:[id number] Oral 540 540 Other: # Voids 2 1 1 Weight 43.091 kg Patient Weight 05/22/23 06:59 Weight 43.091 kg 05/21/23 10:18 05/21/23 10:18
[2023-05-21 13:29] VITALS: BMI 18.5
--- NOTE | 2023-05-21 18:26 | P.PN ---
Subjective Patient is a 87-year-old female with a past medical history of hypertension, hyperlipidemia, history of breast cancer is post bilateral mastectomy, recent history of right femoral neck spiral fracture was brought to the hospital by her due to complaints of generalized weakness, confusion. Regarding her patient was mental status has been declining over the past few years and is getting more confused recently. Patient has been sleeping more than normal and is not responding appropriately which is unusual for her. Patient is also having right lower extremity swelling mainly behind the knee. Denied any fever or chills. No cough or sputum production. No nausea vomiting abdominal pain or diarrhea. Denies any chest pain or shortness of breath. Chest x-ray showed no acute cardiopulmonary process. Bilateral full-thickness rotator cuff tears with rotator cuff arthropathy on the right. EKG showed atrial fibrillation with rapid ventricular response. CTA chest showed no evidence of PE. Bilateral breast implants with abnormal appearance of the left breast process possibly relating to intracapsular malfunction. Evidence of chronic granulomatous disease within the spleen liver and lungs and mediastinum. Laboratory data showed sodium 138 potassium 3.8, bicarb is 24 BUN 29 creatinine 1.05, blood sugar is 123, magnesium 1.2 Troponin 0.44, 0.4-1 and 0.429 05/21/2023 Patient is awake alert but she is confused to time place and partially to person However patient denies any specific symptom Patient heart rate was 170 on admission, currently improved down to 90s. Blood pressure 86/58. Patient started on metoprolol 50 mg twice daily by family resource specialist On heparin drip from emergency room will and Cardizem drip 5 mg. Patient on heparin drip was held, we will defer anticoagulation management to cardiology team B12, folate and TSH are reviewed and they are unremarkable for acute significant abnormality Objective - Vital Signs Vital signs: Vital Signs Temp 97.4 F L 05/21/23 15:57 Pulse 65 05/21/23 17:44 Resp 16 05/21/23 17:44 BP 86/58 05/21/23 17:44 Pulse Ox 92 L 05/21/23 16:53 FiO2 Intake & Output 05/20/23 05/21/23 05/21/23 18:59 06:59 18:59 Intake Total 540 625.917 237 Balance 540 625.917 237 Weight 43.091 kg 43.091 kg Intake: Intake, IV Titration 85.917 Amount Diltiazem 125 mg In 85.917 Sodium Chloride 0.9% 100 ml @ 5 MG/HR 5 mls/hr IV .Q24H [facility] Rx#:[id number] Oral 540 540 237 Other: # Voids 2 1 1 - Exam -GENERAL: The patient is alert and oriented x 1-2 partially, not in any acute distress.Thin built HEENT: Pupils are round and equally reacting to light. EOMI. No scleral icterus. No conjunctival pallor. Normocephalic, atraumatic. No pharyngeal erythema. No thyromegaly. CARDIOVASCULAR: S1 and S2 present. No murmurs, rubs, or gallops. PULMONARY: Chest is clear to auscultation, no wheezing , no crackles. ABDOMEN: Soft, nontender, nondistended, normoactive bowel sounds. No palpable organomegaly. MUSCULOSKELETAL: No joint swelling or deformity. EXTREMITIES: No cyanosis, clubbing, or pedal edema. NEUROLOGICAL: Gross neurological examination did not reveal any focal deficits. SKIN: No rashes. no petechiae. - Labs CBC & Chem 7: 05/21/23 10:18 05/21/23 10:18 Labs: Abnormal Lab Results - Last 24 Hours (Table) 05/20/23 05/20/23 05/20/23 Range/Units 13:05 14:03 14:03 RBC (3.80-5.40) m/uL Hgb (11.4-16.0) gm/dL APTT (22.0-30.0) sec Sodium (137-145) mmol/L Carbon Dioxide (22-30) mmol/L BUN (7-17) mg/dL Glucose (74-99) mg/dL Hemoglobin A1c (<=6.0) % Calcium (8.4-10.2) mg/dL Magnesium (1.6-2.3) mg/dL HDL Cholesterol 61.50 H (40.00-60.00) mg/dL Vitamin B12 1643.0 H (200.0-944.0) pg/mL Folate 40.00 H (4.40-31.00) ng/mL Urine Appearance (Clear) Ur Specific Bells (1.001-1.035) Urine Mucus (None) /hpf 05/20/23 05/20/23 05/21/23 Range/Units 16:00 21:48 10:18 RBC 3.51 L (3.80-5.40) m/uL Hgb 11.1 L (11.4-16.0) gm/dL APTT (22.0-30.0) sec Sodium (137-145) mmol/L Carbon Dioxide (22-30) mmol/L BUN (7-17) mg/dL Glucose (74-99) mg/dL Hemoglobin A1c 6.1 H (<=6.0) % Calcium (8.4-10.2) mg/dL Magnesium (1.6-2.3) mg/dL HDL Cholesterol (40.00-60.00) mg/dL Vitamin B12 (200.0-944.0) pg/mL Folate (4.40-31.00) ng/mL Urine Appearance Cloudy H (Clear) Ur Specific Bells 1.036 H (1.001-1.035) Urine Mucus Rare H (None) /hpf 05/21/23 05/21/23 Range/Units 10:18 10:18 RBC (3.80-5.40) m/uL Hgb (11.4-16.0) gm/dL APTT 56.4 H (22.0-30.0) sec Sodium 133 L (137-145) mmol/L Carbon Dioxide 21 L (22-30) mmol/L BUN 19 H (7-17) mg/dL Glucose 114 H (74-99) mg/dL Hemoglobin A1c (<=6.0) % Calcium 10.4 H (8.4-10.2) mg/dL Magnesium 2.4 H (1.6-2.3) mg/dL HDL Cholesterol (40.00-60.00) mg/dL Vitamin B12 (200.0-944.0) pg/mL Folate (4.40-31.00) ng/mL Urine Appearance (Clear) Ur Specific Bells (1.001-1.035) Urine Mucus (None) /hpf Assessment and Plan Assessment: New onset atrial fibrillation with rapid ventricular response Moderate calorie protein malnutrition Generalized weakness could be due to dehydration volume depletion Worsening confusion and forgetfulness with underlying cognitive impairment Elevated troponin level likely due to A-fib with RVR/demand ischemia Hypomagnesemia Hypercalcemia likely due to dehydration. Follow-up repeat level Patient history of right femoral neck spiral fracture. As per surgery Right lower extremity swelling DVT Hypertension Hyperlipidemia History of breast cancer status post bilateral mastectomy Plan: Continue with Cardizem drip Metoprolol ordered by family resource specialist Follow-up blood pressure and heart rate Will defer anticoagulation to cardiology team Dietary consult Labs and medication were reviewed.. Continue same treatment. Continue with symptomatic treatment. Resume home medication. Monitor labs and vitals. DVT and GI prophylaxis. Further recommendations as per clinical course of the patient DVT prophylaxis: heparin GI Prophylaxis: Pepcid PT/OT: Pending Prognosis is guarded
[2023-05-21] MEDS ORDERED: Potassium Replacement Protocol 1 EACH MISC MISCELLANE PRN (18:32)
[2023-05-21] MEDS: HEPARIN SODIUM,PORCINE 5,000 UNIT/ML 1 ML VIAL SQ SCH (20:36)
[2023-05-21] MEDS ORDERED: HEPARIN SODIUM,PORCINE 5,000 UNIT/ML 1 ML VIAL SQ SCH (21:00)
[2023-05-22] MEDS ORDERED: QUEtiapine 25 MG TAB PO PRN (06:35)
[2023-05-22] MEDS: LEVOTHYROXINE 50 MCG TAB PO SCH (08:28)
[2023-05-22 08:46] LABS: Basophils # (A) 0.1 k/uL (0-0.2); Basophils % (A) 1 %; Eosinophils # (A) 0.1 k/uL (0-0.7); Eosinophils % (A) 1 %; HGB 11.3 gm/dL (11.4-16.0); Lymphocytes # (A) 1.5 k/uL (1.0-4.8); Lymphocytes % (A) 18 %; MCH 31.8 pg (25.0-35.0); MCHC 33.3 g/dL (31.0-37.0); MCV 95.4 fL (80.0-100.0); Mean Platelet Volume 8.2; Monocytes # (A) 0.7 k/uL (0-1.0); Monocytes % (A) 8 %; Neutrophils # (A) 5.6 k/uL (1.3-7.7); Neutrophils % (A) 69 %; Platelet Count 323 k/uL (150-450); RBC 3.56 m/uL (3.80-5.40); RDW 12.5 % (11.5-15.5); WBC 8.2 k/uL (3.8-10.6)
[2023-05-22 09:11] LABS: African American GFR (CKD) 52 (>60 ml/min/1.73 sqM); Anion Gap 9 mmol/L; Blood Urea Nitrogen 25 mg/dL (7-17); Calcium 10.9 mg/dL (8.4-10.2); Carbon Dioxide 19 mmol/L (22-30); Chloride 105 mmol/L (98-107); Glucose 113 mg/dL (74-99); Magnesium 2.1 mg/dL (1.6-2.3); Non-African American GFR(CKD) 45 (>60 ml/min/1.73 sqM); Potassium 3.8 mmol/L (3.5-5.1); Sodium 133 mmol/L (137-145)
[2023-05-22] MEDS: SODIUM CHLORIDE 0.9% 1,000 ML IV SCH (10:06)
[2023-05-22] MEDS: APIXABAN 2.5 MG TABLET PO SCH (11:56)
[2023-05-22] MEDS: SODIUM CHLORIDE 0.9% 250 ML IV SCH (11:56)
[2023-05-22] MEDS: POTASSIUM CHLORIDE ER 20 MEQ TAB.ER PO STA (11:56)
--- NOTE | 2023-05-22 12:50 | P.PN ---
Subjective Progress Note Date: 05/22/23 The patient is an 87-year-old female who presented to the hospital with weakness and fatigue. She was found to be in A-fib with RVR. Patient was started on Cardizem and heparin drips. Cardizem has been discontinued over the last 24 hours after starting oral beta-geraldine. Heparin was also discontinued. Overnight the patient was quite irritated and agitated as she has underlying dementia but appears happy and cooperative at the time of my examination. She denies any chest pain no difficulty breathing and overall states she feels well. She does have some lower extremity edema which started approximately 2 weeks prior to her admission. GENERAL: Well-appearing, well-nourished and in no acute distress. NECK: Supple without JVD or thyromegaly. LUNGS: Breath sounds clear to auscultation bilaterally. Respiration equal and unlabored. No wheezes, rales or rhonchi. HEART: Irregular rate and rhythm without murmurs, rubs or gallops. S1 and S2 heard. EXTREMITIES: Normal range of motion, +2 lower extremity pitting edema. No clubbing or cyanosis. Peripheral pulses intact and strong. TELEMETRY: Persistent atrial fibrillation with heart rates in the 100s to 120s IMPRESSION: A-fib with RVR, new onset Dementia Hypothyroid Hypertension PLAN: Start novel anticoagulation Increase beta-geraldine to 3 times daily Discontinue losartan Patient to be discharged when better rate controlled I am dictating on behalf of Dr Jj Galindo's history/physical and assessment/plan. Objective - Vital Signs Vital signs: Vital Signs Temp 97.3 F L 05/22/23 11:53 Pulse 144 H 05/22/23 11:53 Resp 16 05/22/23 11:53 BP 123/66 05/22/23 11:53 Pulse Ox 96 05/22/23 11:53 FiO2 Intake & Output 05/21/23 05/22/23 05/22/23 18:59 06:59 18:59 Intake Total 577 540 118 Balance 577 540 118 Weight 43.091 kg Intake: Oral 577 540 118 Other: # Voids 1 1 1 # Bowel Movements 1 - Labs CBC & Chem 7: 05/22/23 08:23 05/22/23 08:23 Labs: Abnormal Lab Results - Last 24 Hours (Table) 05/22/23 05/22/23 Range/Units 08:23 08:23 RBC 3.56 L (3.80-5.40) m/uL Hgb 11.3 L (11.4-16.0) gm/dL Sodium 133 L (137-145) mmol/L Carbon Dioxide 19 L (22-30) mmol/L BUN 25 H (7-17) mg/dL Creatinine 1.12 H (0.52-1.04) mg/dL Glucose 113 H (74-99) mg/dL Calcium 10.9 H (8.4-10.2) mg/dL
[2023-05-22] MEDS ORDERED: METOPROLOL TARTRATE 5 MG/5 ML VIAL IVP PRN (13:05)
--- NOTE | 2023-05-22 13:08 | P.PN ---
Subjective Progress Note Date: 05/22/23 87-year-old female with a past medical history of hypertension, hyperlipidemia, history of breast cancer is post bilateral mastectomy, recent history of right femoral neck spiral fracture was brought to the hospital by her due to complaints of generalized weakness, confusion. Regarding her patient was mental status has been declining over the past few years and is getting more confused recently. Patient has been sleeping more than normal and is not responding appropriately which is unusual for her. Patient is also having right lower extremity swelling mainly behind the knee. Denied any fever or chills. No cough or sputum production. No nausea vomiting abdominal pain or diarrhea. Denies any chest pain or shortness of breath. Chest x-ray showed no acute cardiopulmonary process. Bilateral full-thickness rotator cuff tears with rotator cuff arthropathy on the right. EKG showed atrial fibrillation with rapid ventricular response. CTA chest showed no evidence of PE. Bilateral breast implants with abnormal appearance of the left breast process possibly relating to intracapsular malfunction. Evidence of chronic granulomatous disease within the spleen liver and lungs and mediastinum. Laboratory data showed sodium 138 potassium 3.8, bicarb is 24 BUN 29 creatinine 1.05, blood sugar is 123, magnesium 1.2 Troponin 0.44, 0.4-1 and 0.429 05/21/2023 : Patient is awake alert but she is confused to time place and partially to personHowever patient denies any specific symptomPatient heart rate was 170 on admission, currently improved down to 90s. Blood pressure 86/58.Pat ient started on metoprolol 50 mg twice daily by park interpretive ranger On heparin drip from emergency room will and Cardizem drip 5 mg. Patient on heparin drip was held, we will defer anticoagulation management to cardiology team B12, folate and TSH are reviewed and they are unremarkable for acute significant abnormality 05/22/23: Patient seen and evaluated bedside. Overnight patient had an acute episode of delirium, blood work reviewed creatinine 1.12 elevated from 0.8, calcium 10.9, patient had paroxysmal tachycardia. Continue on metoprolol Cardizem drip weaned off, as needed IV Lopressor ordered plan of care discussed with at bedside continue with frequent reorientation PHYSICAL EXAMINATION: GENERAL: The patient is alert and oriented x 1, HEENT: Pupils are round and equally reacting to light. EOMI. CARDIOVASCULAR: S1 and S2 present. Tachycardia, irregular rhythm PULMONARY: Chest is clear to auscultation, no wheezing or crackles. ABDOMEN: Soft, nontender, nondistended, normoactive bowel sounds. No palpable organomegaly. MUSCULOSKELETAL: No joint swelling or deformity. EXTREMITIES: No cyanosis, clubbing, or pedal edema. NEUROLOGICAL: Gross neurological examination did not reveal any focal deficits. SKIN: No rashes. Objective - Vital Signs Vital signs: Vital Signs Temp 97.3 F L 05/22/23 11:53 Pulse 144 H 05/22/23 11:53 Resp 16 05/22/23 11:53 BP 123/66 05/22/23 11:53 Pulse Ox 96 05/22/23 11:53 FiO2 Intake & Output 05/21/23 05/22/23 05/22/23 18:59 06:59 18:59 Intake Total 577 540 118 Balance 577 540 118 Weight 43.091 kg Intake: Oral 577 540 118 Other: # Voids 1 1 1 # Bowel Movements 1 - Labs CBC & Chem 7: 05/22/23 08:23 05/22/23 08:23 Labs: Abnormal Lab Results - Last 24 Hours (Table) 05/22/23 05/22/23 Range/Units 08:23 08:23 RBC 3.56 L (3.80-5.40) m/uL Hgb 11.3 L (11.4-16.0) gm/dL Sodium 133 L (137-145) mmol/L Carbon Dioxide 19 L (22-30) mmol/L BUN 25 H (7-17) mg/dL Creatinine 1.12 H (0.52-1.04) mg/dL Glucose 113 H (74-99) mg/dL Calcium 10.9 H (8.4-10.2) mg/dL Assessment and Plan Assessment: Assessment and plan New onset atrial fibrillation with rapid ventricular response Moderate calorie protein malnutrition Acute metabolic encephalopathy secondary to JESSICA Acute renal failure Generalized weakness could be due to dehydration volume depletion Negative impairment with acute delirium Elevated troponin level likely due to A-fib with RVR/demand ischemia Hypomagnesemia Hypercalcemia likely due to dehydration. Patient history of right femoral neck spiral fracture. As per surgery Hypertension Hyperlipidemia History of breast cancer status post bilateral mastectomy * In regards to new onset atrial fibrillation continue rate control with metoprolol, as needed IV Lopressor ordered continue Eliquis * Regards to protein calorie malnutrition continue with nutritional supplementation * In regards to impaired cognition, maintain delirium precautions continue to monitor maintain fall precautions * In regards to hypercalcemia continue with as needed fluid resuscitation patient was pulling out and fidgeting with IVs overnight * Continue to follow-up on basic metabolic panel and CBC Time with Patient: Greater than 30
[2023-05-22] MEDS: SODIUM CHLORIDE 0.9% 500 ML 500 ML IV ONE (13:57)
[2023-05-22] MEDS: METOPROLOL TARTRATE 50 MG TAB PO SCH (15:55)
[2023-05-23 09:22] LABS: HCT 35.9 % (34.0-46.0); HGB 11.6 gm/dL (11.4-16.0); MCH 31.3 pg (25.0-35.0); MCHC 32.4 g/dL (31.0-37.0); MCV 96.3 fL (80.0-100.0); Mean Platelet Volume 9.4; Platelet Count 393 k/uL (150-450); RBC 3.72 m/uL (3.80-5.40); RDW 12.7 % (11.5-15.5); WBC 9.9 k/uL (3.8-10.6)
[2023-05-23 09:39] LABS: ALT 39 U/L (4-34); AST 46 U/L (14-36); African American GFR (CKD) 60 (>60 ml/min/1.73 sqM); Albumin 3.2 g/dL (3.5-5.0); Alkaline Phosphatase 68 U/L (38-126); Anion Gap 5 mmol/L; Blood Urea Nitrogen 24 mg/dL (7-17); Calcium 10.6 mg/dL (8.4-10.2); Carbon Dioxide 22 mmol/L (22-30); Chloride 108 mmol/L (98-107); Glucose 105 mg/dL (74-99); Magnesium 1.7 mg/dL (1.6-2.3); Non-African American GFR(CKD) 52 (>60 ml/min/1.73 sqM); Potassium 4.4 mmol/L (3.5-5.1); Sodium 135 mmol/L (137-145); Total Bilirubin 0.6 mg/dL (0.2-1.3); Total Protein 5.6 g/dL (6.3-8.2)
[2023-05-23] MEDS: METOPROLOL TARTRATE 25 MG TAB PO STA (10:02)
--- NOTE | 2023-05-23 14:44 | P.PN ---
Subjective Progress Note Date: 05/23/23 I am seeing the patient for the first time during this admission. Please refer to Dr. Deluna's note for further details. Patient's and her daughter are at bedside. Seems that the patient has been having memory issues for last 2-3 years according to the . She is declining workup such as a imaging of the brain or carotid duplex or any lab work neurologic perspective. is in agreement of holding off any workup at this time. Objective - Vital Signs Vital signs: Vital Signs Temp 98 F 05/23/23 08:39 Pulse 123 H 05/23/23 11:28 Resp 16 05/23/23 11:28 BP 116/69 05/23/23 11:28 Pulse Ox 95 05/23/23 11:28 FiO2 Intake & Output 05/22/23 05/23/23 05/23/23 18:59 06:59 18:59 Intake Total 118 237 460 Balance 118 237 460 Intake: Oral 118 237 460 Other: Voiding Method Toilet Toilet Diaper Diaper Incontinent Incontinent # Voids 3 1 2 # Bowel Movements 1 1 - Exam Gen.: Patient is a sitting in a recliner chair and is not in acute distress Neuro- Limited the The patient is awake alert oriented to self and the month. She said that the year is the 2022 after she stated she is over [employer]. She is able to iden tify objects correctly such as pen and watch. She is able to name her daughter is in the hot 's name correctly. She was able to state the current state and the capital [place] correctly. She is following simple commands. Somewhat slow responded Pupils are round equal and reactive to light. Visual johnston are full to consultation. No facial weakness. Motor: Limited assessment but moving all extremities above gravity. I felt the right upper extremity was weaker than the rest but was limited because of pain. - Labs CBC & Chem 7: 05/23/23 08:01 05/23/23 08:01 Labs: Abnormal Lab Results - Last 24 Hours (Table) 05/23/23 05/23/23 Range/Units 08:01 08:01 RBC 3.72 L (3.80-5.40) m/uL Sodium 135 L (137-145) mmol/L Chloride 108 H (98-107) mmol/L BUN 24 H (7-17) mg/dL Glucose 105 H (74-99) mg/dL Calcium 10.6 H (8.4-10.2) mg/dL AST 46 H (14-36) U/L ALT 39 H (4-34) U/L Total Protein 5.6 L (6.3-8.2) g/dL Albumin 3.2 L (3.5-5.0) g/dL Assessment and Plan Assessment: * Memory disturbance for last 2 to 3 years, getting worse. Patient is somewhat disoriented, as she said it was the fall season and that she is in a hotel. Although patient could have delirium from acute medical conditions, but because of duration of symptoms, underlying mild cognitive impairment or early dementia is definitely a concern. * New onset atrial fibrillation with rapid ventricular rate * Elevated cardiac enzymes * Hard of hearing * Mild renal insufficiency * Borderline liver enzymes with AST 43, normal ALT * Recent right femoral spiral fracture 05/29/2023 status post surgery. Plan: Serum folate is 40 Vitamin B12 is at thousand 643 TSH is 2.890 Hemoglobin A1c 6.0 next She has memory issues for last 2-3 years and likely has cognitive and impairment or early dementia. I recommend the the patient to follow-up with a neurologist as outpatient and the further workup since she declined to Dr. Deluna and myself further workup such as CT of the head, carotid duplex or further workup. Recommend following-up as an outpatient within 2-3 weeks. We'll defer the rest of the medical measure the primary team Plan discussed with the patient's as well as daughter were bedside. Also updated her nurse. There is no further neurological work-up. Will Sign off. Please reconsult if needed. Time with Patient: Less than 30
--- NOTE | 2023-05-23 15:10 | P.PN ---
Subjective Progress Note Date: 05/23/23 The patient is an 87-year-old female who presented to the hospital with weakness and fatigue. She was found to be in A-fib with RVR. Patient was started on Cardizem and heparin drips. Cardizem has been discontinued over the last 24 hours after starting oral beta-geraldine. Heparin was also discontinued. Overnight the patient was quite irritated and agitated as she has underlying dementia but appears happy and cooperative at the time of my examination. She denies any chest pain no difficulty breathing and overall states she feels well. She does have some lower extremity edema which started approximately 2 weeks prior to her admission. 05/23 Patient seen today in follow-up. Heart rate is not controlled currently in the 120s, blood pressure 116/69, pulse ox 95% on room air. Repeat blood work reveals WBC 9.9, hemoglobin 9.6, sodium 135, BUN 24 creatinine 0.99. Telemetry is atrial fibrillation. Patient has been started on Eliquis. Physical examination: GENERAL: Well-appearing, well-nourished and in no acute distress. NECK: Supple without JVD or thyromegaly. LUNGS: Breath sounds clear to auscultation bilaterally. Respiration equal and unlabored. No wheezes, rales or rhonchi. HEART: Irregular rate and rhythm without murmurs, rubs or gallops. S1 and S2 heard. EXTREMITIES: Normal range of motion, +2 lower extremity pitting edema. No clubbing or cyanosis. Peripheral pulses intact and strong. IMPRESSION: A-fib with RVR, new onset Dementia Hypothyroid Hypertension PLAN: Continue Eliquis 2.5 mg twice daily Increase beta-geraldine to 75 mg 3 times daily Continue telemetry monitoring. If heart rate is controlled in the afternoon, patient is cleared for discharge. Nurse practitioner note has been reviewed, I agree with documented findings and plan of care. Patient was seen and examined. Objective - Vital Signs Vital signs: Vital Signs Temp 98 F 05/23/23 08:39 Pulse 126 H 05/23/23 08:39 Resp 16 05/23/23 08:39 BP 136/87 05/23/23 08:39 Pulse Ox 95 05/23/23 08:39 FiO2 Intake & Output 05/22/23 05/23/23 05/23/23 18:59 06:59 18:59 Intake Total 118 237 Balance 118 237 Intake: Oral 118 237 Other: Voiding Method Toilet Toilet Diaper Diaper Incontinent Incontinent # Voids 3 1 # Bowel Movements 1 1 - Labs CBC & Chem 7: 05/23/23 08:01 05/23/23 08:01 Labs: Abnormal Lab Results - Last 24 Hours (Table) 05/23/23 Range/Units 08:01 RBC 3.72 L (3.80-5.40) m/uL
[2023-05-23] MEDS: METOPROLOL TARTRATE 25 MG TAB PO SCH (16:07)
--- NOTE | 2023-05-23 18:10 | P.PN ---
Progress Note - Text Progress Note Date: 05/23/23 87-year-old female with a past medical history of hypertension, hyperlipidemia, history of breast cancer is post bilateral mastectomy, recent history of right femoral neck spiral fracture was brought to the hospital by her due to complaints of generalized weakness, confusion. Regarding her patient was mental status has been declining over the past few years and is getting more confused recently. Patient has been sleeping more than normal and is not responding appropriately which is unusual for her. Patient is also having right lower extremity swelling mainly behind the knee. Denied any fever or chills. No cough or sputum production. No nausea vomiting abdominal pain or diarrhea. Denies any chest pain or shortness of breath. Chest x-ray showed no acute cardiopulmonary process. Bilateral full-thickness rotator cuff tears with rotator cuff arthropathy on the right. EKG showed atrial fibrillation with rapid ventricular response. CTA chest showed no evidence of PE. Bilateral breast implants with abnormal appearance of the left breast process possibly relating to intracapsular malfunction. Evidence of chronic granulomatous disease within the spleen liver and lungs and mediastinum. Laboratory data showed sodium 138 potassium 3.8, bicarb is 24 BUN 29 creatinine 1.05, blood sugar is 123, magnesium 1.2 Troponin 0.44, 0.4-1 and 0.429 05/21/2023 : Patient is awake alert but she is confused to time place and partially to personHowever patient denies any specific symptomPatient heart rate was 170 on admission, currently improved down to 90s. 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 Patient on heparin drip was held, we will defer anticoagulation management to cardiology team B12, folate and TSH are reviewed and they are unremarkable for acute significant abnormality 05/22/23: Patient seen and evaluated bedside. Overnight patient had an acute episode of delirium, blood work reviewed creatinine 1.12 elevated from 0.8, calcium 10.9, patient had paroxysmal tachycardia. Continue on metoprolol Cardizem drip weaned off, as needed IV Lopressor ordered plan of care discussed with at bedside continue with frequent reorientation May 23: I assumed care of the patient today. and daughter at the bedside. states patient chronically does not eat much. She would like to have Ensure. I have ordered vanilla flavor. She would prefer to have soups. Does not eat any meats. Has been up to the bathroom with the help of the . Feeling better. A-fib remains in the 120s. Metoprolol increased to 75 mg 3 times daily. Active Medications Acetaminophen (Acetaminophen Tab 325 Mg Tab) 650 mg PO Q6HR PRN PRN Reason: Mild Pain or Fever > 100.5 Hydrocodone Bitart/Acetaminophen (Hydrocodone/Apap 5-325mg 1 Each Tab) 1 each PO Q4HR PRN PRN Reason: Moderate Pain (Scale 4 to 6) Apixaban (Apixaban 2.5 Mg Tablet) 2.5 mg PO BID [facility]; Protocol Last Admin: 05/23/23 08:41 Dose: 2.5 mg Atorvastatin Calcium (Atorvastatin 20 Mg Tab) 20 mg PO DAILY [facility] Last Admin: 05/23/23 08:41 Dose: 20 mg Famotidine (Famotidine 20 Mg Tab) 20 mg PO DAILY [facility] Last Admin: 05/23/23 08:41 Dose: 20 mg Levothyroxine Sodium (Levothyroxine 25 Mcg Tab) 25 mcg PO Q2D [facility] Last Admin: 05/23/23 06:19 Dose: 25 mcg Levothyroxine Sodium (Levothyroxine 50 Mcg Tab) 50 mcg PO Q2D [facility] Last Admin: 05/22/23 08:28 Dose: 50 mcg Metoprolol Tartrate (Metoprolol Tartrate 5 Mg/5 Ml Vial) 2.5 mg IVP Q6HR PRN PRN Reason: Cardiac Arrhythmia Metoprolol Tartrate (Metoprolol Tartrate 25 Mg Tab) 75 mg PO TID [facility] Last Admin: 05/23/23 16:07 Dose: 75 mg Miscellaneous Information (Potassium Replacement Protocol 1 Each Misc) 1 each MISCELLANE DAILY PRN; Protocol PRN Reason: Per Protocol Naloxone HCl (Naloxone 0.4 Mg/Ml 1 Ml Vial) 0.2 mg IV Q2M PRN PRN Reason: Opioid Reversal Non-Formulary Medication (Estrogen,Con/M-Progest Acet [Prempro 0.3 Mg-1.5 Mg Tablet]) 0.5 tab PO DAILY [facility] Last Admin: 05/23/23 08:41 Dose: Not Given Ondansetron HCl (Ondansetron 4 Mg/2 Ml Vial) 4 mg IVP Q8HR PRN PRN Reason: Nausea And Vomiting Quetiapine Fumarate (Quetiapine 25 Mg Tab) 12.5 mg PO HS PRN PRN Reason: Agitation On examination: VITAL SIGNS: [98, 126, 16, 1 3687, 95% room air] GENERAL APPEARANCE: BMI 18.6, thin build, loss of subcutaneous fat and muscle. Reclining in chair. HEENT: Normal external appearance of nose and ear. Oral cavity normal EYES: Pupils equal. Conjunctiva normal. NECK: JVD not raised. Mass not palpable. RESPIRATORY: Respiratory effort normal. Lungs clear to auscultation. CARDIOVASCULAR: Heart sounds are regular. No edema. ABDOMEN: Soft. Liver and spleen not palpable. No tenderness. No mass palpable. MUSCULOSKELETAL: Evidence of OA PSYCHIATRY: Able to answer simple questions. Tired INVESTIGATIONS, reviewed in the clinical context: May 23: White count 9.9 hemoglobin 11.6 platelets 393 sodium 135 potassium 4.4 BUN 24 creatinine 0.99 Troponin I 0.429 Albumin 3.2 TSH 2.8 Assessment and plan -New onset atrial fibrillation with rapid ventricular response: Remains uncontrolled Being followed by cardiology Eliquis. Lopressor increased to 75 mg 3 times daily -Moderate calorie protein malnutrition Ensure. Diet encouraged -Acute metabolic encephalopathy secondary to JESSICA: Improving -Acute renal failure, likely prerenal from decreased oral intake -Medical asthenia secondary to dehydration and uncontrolled A-fib -Elevated troponin level likely due to A-fib with RVR/demand ischemia. -Hypothyroid Continue Synthroid -Hypercalcemia likely due to dehydration. -Hypertension Lopressor Hyperlipidemia Lipitor -History of breast cancer status post bilateral mastectomy -Full code Lopressor increased. Discussed with patient daughter and . Encourage oral intake.
[2023-05-24] MEDS: AMIODARONE 360 MG in DEXTROSE 5% IN WATER 200 ML IV ONE (10:01)
--- NOTE | 2023-05-24 12:50 | P.PN ---
Subjective Progress Note Date: 05/24/23 The patient is an 87-year-old female who presented to the hospital with weakness and fatigue. She was found to be in A-fib with RVR. Patient was started on Cardizem and heparin drips. Cardizem has been discontinued over the last 24 hours after starting oral beta-geraldine. Heparin was also discontinued. Overnight the patient was quite irritated and agitated as she has underlying dementia but appears happy and cooperative at the time of my examination. She denies any chest pain no difficulty breathing and overall states she feels well. She does have some lower extremity edema which started approximately 2 weeks prior to her admission. 05/23 Patient seen today in follow-up. Heart rate is not controlled currently in the 120s, blood pressure 116/69, pulse ox 95% on room air. Repeat blood work reveals WBC 9.9, hemoglobin 9.6, sodium 135, BUN 24 creatinine 0.99. Telemetry is atrial fibrillation. Patient has been started on Eliquis. 05/24 Patient remains in atrial fibrillation with heart rates running between 110 and 130. Yesterday, we increased beta-geraldine. Patient has been continued on Eliquis. Blood pressure 135/84. Physical examination: GENERAL: Well-appearing, well-nourished and in no acute distress. NECK: Supple without JVD or thyromegaly. LUNGS: Breath sounds clear to auscultation bilaterally. Respiration equal and unlabored. No wheezes, rales or rhonchi. HEART: Irregular rate and rhythm without murmurs, rubs or gallops. S1 and S2 heard. EXTREMITIES: Normal range of motion, +2 lower extremity pitting edema. No clubbing or cyanosis. Peripheral pulses intact and strong. IMPRESSION: Paroxysmal A-fib with RVR, new onset Dementia Hypothyroid Hypertension PLAN: Continue Eliquis 2.5 mg twice daily Continue Lopressor 75 mg 3 times daily Start patient on amiodarone drip with plan to transition to oral tomorrow Nurse practitioner note has been reviewed, I agree with documented findings and plan of care. Patient was seen and examined. Objective - Vital Signs Vital signs: Vital Signs Temp 97.4 F L 05/24/23 09:00 Pulse 120 H 05/24/23 09:00 Resp 16 05/24/23 09:00 BP 160/93 05/24/23 09:00 Pulse Ox 95 05/24/23 09:00 FiO2 Intake & Output 05/23/23 05/24/23 05/24/23 18:59 06:59 18:59 Intake Total 940 Output Total 100 Balance 940 -100 Weight 43.091 kg Intake: Oral 940 Output: Urine 100 Other: Voiding Method Toilet Toilet Toilet Diaper Diaper Diaper Incontinent Incontinent Incontinent # Voids 2 1 - Labs CBC & Chem 7: 05/23/23 08:01 05/23/23 08:01 Labs: Abnormal Lab Results - Last 24 Hours (Table) 05/23/23 Range/Units 08:01 Sodium 135 L (137-145) mmol/L Chloride 108 H (98-107) mmol/L BUN 24 H (7-17) mg/dL Glucose 105 H (74-99) mg/dL Calcium 10.6 H (8.4-10.2) mg/dL AST 46 H (14-36) U/L ALT 39 H (4-34) U/L Total Protein 5.6 L (6.3-8.2) g/dL Albumin 3.2 L (3.5-5.0) g/dL
--- NOTE | 2023-05-24 15:55 | P.PN ---
Progress Note - Text Progress Note Date: 05/24/23 87-year-old female with a past medical history of hypertension, hyperlipidemia, history of breast cancer is post bilateral mastectomy, recent history of right femoral neck spiral fracture was brought to the hospital by her due to complaints of generalized weakness, confusion. Regarding her patient was mental status has been declining over the past few years and is getting more confused recently. Patient has been sleeping more than normal and is not responding appropriately which is unusual for her. Patient is also having right lower extremity swelling mainly behind the knee. Denied any fever or chills. No cough or sputum production. No nausea vomiting abdominal pain or diarrhea. Denies any chest pain or shortness of breath. Chest x-ray showed no acute cardiopulmonary process. Bilateral full-thickness rotator cuff tears with rotator cuff arthropathy on the right. EKG showed atrial fibrillation with rapid ventricular response. CTA chest showed no evidence of PE. Bilateral breast implants with abnormal appearance of the left breast process possibly relating to intracapsular malfunction. Evidence of chronic granulomatous disease within the spleen liver and lungs and mediastinum. Laboratory data showed sodium 138 potassium 3.8, bicarb is 24 BUN 29 creatinine 1.05, blood sugar is 123, magnesium 1.2 Troponin 0.44, 0.4-1 and 0.429 05/21/2023 : Patient is awake alert but she is confused to time place and partially to personHowever patient denies any specific symptomPatient heart rate was 170 on admission, currently improved down to 90s. Blood pressure 86/58.Patient started on metoprolol 50 mg twice daily by business applications specialist On heparin drip from emergency room will and Cardizem drip 5 mg. Patient on heparin drip was held, we will defer anticoagulation management to cardiology team B12, folate and TSH are reviewed and they are unremarkable for acute significant abnormality 05/22/23: Patient seen and evaluated bedside. Overnight patient had an acute episode of delirium, blood work reviewed creatinine 1.12 elevated from 0.8, calcium 10.9, patient had paroxysmal tachycardia. Continue on metoprolol Cardizem drip weaned off, as needed IV Lopressor ordered plan of care discussed with at bedside continue with frequent reorientation May 23: I assumed care of the patient today. and daughter at the bedside. states patient chronically does not eat much. She would like to have Ensure. I have ordered vanilla flavor. She would prefer to have soups. Does not eat any meats. Has been up to the bathroom with the help of the . Feeling better. A-fib remains in the 120s. Metoprolol increased to 75 mg 3 times daily. May 24: Tired. at the bedside. Eating a bit better. Heart rate still remains in the 120s. Started on IV amiodarone. Patient's body frame is unlike that of hypothyroid. Cut back Synthroid to 25 mcg daily. Active Medications Acetaminophen (Acetaminophen Tab 325 Mg Tab) 650 mg PO Q6HR PRN PRN Reason: Mild Pain or Fever > 100.5 Hydrocodone Bitart/Acetaminophen (Hydrocodone/Apap 5-325mg 1 Each Tab) 1 each PO Q4HR PRN PRN Reason: Moderate Pain (Scale 4 to 6) Apixaban (Apixaban 2.5 Mg Tablet) 2.5 mg PO BID [facility]; Protocol Last Admin: 05/24/23 09:02 Dose: 2.5 mg Atorvastatin Calcium (Atorvastatin 20 Mg Tab) 20 mg PO DAILY [facility] Last Admin: 05/24/23 09:02 Dose: 20 mg Famotidine (Famotidine 20 Mg Tab) 20 mg PO DAILY [facility] Last Admin: 05/24/23 09:02 Dose: 20 mg Amiodarone HCl 450 mg/ (Dextrose/Water) 250 mls @ 16.667 mls/hr IV .Q15H [facility]; Protocol Stop: 05/25/23 09:29 Levothyroxine Sodium (Levothyroxine 25 Mcg Tab) 25 mcg PO DAILY@0630 [facility] Metoprolol Tartrate (Metoprolol Tartrate 5 Mg/5 Ml Vial) 2.5 mg IVP Q6HR PRN PRN Reason: Cardiac Arrhythmia Metoprolol Tartrate (Metoprolol Tartrate 25 Mg Tab) 75 mg PO TID [facility] Last Admin: 05/24/23 09:02 Dose: 75 mg Miscellaneous Information (Potassium Replacement Protocol 1 Each Misc) 1 each MISCELLANE DAILY PRN; Protocol PRN Reason: Per Protocol Naloxone HCl (Naloxone 0.4 Mg/Ml 1 Ml Vial) 0.2 mg IV Q2M PRN PRN Reason: Opioid Reversal Non-Formulary Medication (Estrogen,Con/M-Progest Acet [Prempro 0.3 Mg-1.5 Mg Tablet]) 0.5 tab PO DAILY [facility] Last Admin: 05/24/23 08:48 Dose: Not Given Ondansetron HCl (Ondansetron 4 Mg/2 Ml Vial) 4 mg IVP Q8HR PRN PRN Reason: Nausea And Vomiting Quetiapine Fumarate (Quetiapine 25 Mg Tab) 12.5 mg PO HS PRN PRN Reason: Agitation On examination: VITAL SIGNS: 97.4, 120, 16, 135/84, 93% room air GENERAL APPEARANCE: BMI 18.6, thin build, loss of subcutaneous fat and muscle. Laying in bed HEENT: Normal external appearance of nose and ear. Oral cavity normal EYES: Pupils equal. Conjunctiva normal. NECK: JVD not raised. Mass not palpable. RESPIRATORY: Respiratory effort normal. Lungs clear to auscultation. CARDIOVASCULAR: Heart sounds irregular. No edema. ABDOMEN: Soft. Liver and spleen not palpable. No tenderness. No mass palpable. MUSCULOSKELETAL: Evidence of OA PSYCHIATRY: Able to answer simple questions. Tired INVESTIGATIONS, reviewed in the clinical context: May 23: White count 9.9 hemoglobin 11.6 platelets 393 sodium 135 potassium 4.4 BUN 24 creatinine 0.99 Troponin I 0.429 Albumin 3.2 TSH 2.8 Assessment and plan -New onset atrial fibrillation with rapid ventricular response: Remains uncontrolled Being followed by cardiology Eliquis. Lopressor 75 mg 3 times daily IV amiodarone added -Moderate calorie protein malnutrition Ensure. Diet encouraged -Acute metabolic encephalopathy secondary to JESSICA: Better -Acute renal failure, likely prerenal from decreased oral intake -Medical asthenia secondary to dehydration and uncontrolled A-fib -Elevated troponin level likely due to A-fib with RVR/demand ischemia. -Hypothyroid, could be clinically over replaced Cut back Synthroid to 25 mcg a day -Hypercalcemia likely due to dehydration. -Essential hypertension Lopressor Hyperlipidemia Lipitor -History of breast cancer status post bilateral mastectomy -Full code IV amiodarone added. Synthroid dose cut back. Discussed with patient .
[2023-05-24] MEDS: AMIODARONE 450 MG in DEXTROSE 5% IN WATER 250 ML IV SCH (16:07)
[2023-05-25 11:03] VITALS: RESP 20
[2023-05-25 12:08] VITALS: BP 147/98; PULSE 107; TEMP 97.5
--- NOTE | 2023-05-25 13:16 | P.PN ---
Subjective Progress Note Date: 05/25/23 The patient is an 87-year-old female who presented to the hospital with weakness and fatigue. She was found to be in A-fib with RVR. Patient was started on Cardizem and heparin drips. Cardizem has been discontinued over the last 24 hours after starting oral beta-geraldine. Heparin was also discontinued. Overnight the patient was quite irritated and agitated as she has underlying dementia but appears happy and cooperative at the time of my examination. She denies any chest pain no difficulty breathing and overall states she feels well. She does have some lower extremity edema which started approximately 2 weeks prior to her admission. 05/23 Patient seen today in follow-up. Heart rate is not controlled currently in the 120s, blood pressure 116/69, pulse ox 95% on room air. Repeat blood work reveals WBC 9.9, hemoglobin 9.6, sodium 135, BUN 24 creatinine 0.99. Telemetry is atrial fibrillation. Patient has been started on Eliquis. 05/24 Patient remains in atrial fibrillation with heart rates running between 110 and 130. Yesterday, we increased beta-geraldine. Patient has been continued on Eliquis. Blood pressure 135/84. 05/25 Patient remains in atrial fibrillation but heart rate is controlled in the 80s. Blood pressure 136/92. Patient denies having any chest pain, shortness of br eath, palpitations. Physical examination: GENERAL: Well-appearing, well-nourished and in no acute distress. NECK: Supple without JVD or thyromegaly. LUNGS: Breath sounds clear to auscultation bilaterally. Respiration equal and unlabored. No wheezes, rales or rhonchi. HEART: Irregular rate and rhythm without murmurs, rubs or gallops. S1 and S2 heard. EXTREMITIES: Normal range of motion, no edema. No clubbing or cyanosis. Peripheral pulses intact and strong. IMPRESSION: Paroxysmal A-fib with RVR, new onset Dementia Hypothyroid Hypertension PLAN: Continue current cardiac medications Patient is cleared from cardiology for discharge and may follow-up with Dr. BENNIE Galaviz in 1 to 2 weeks. Nurse practitioner note has been reviewed, I agree with documented findings and plan of care. Patient was seen and examined. Objective - Vital Signs Vital signs: Vital Signs Temp 98.7 F 05/25/23 05:16 Pulse 97 05/25/23 05:16 Resp 16 02/28/24 05:16 BP 153/103 05/25/23 05:16 Pulse Ox 96 05/25/23 05:16 FiO2 Intake & Output 05/24/23 05/25/23 05/25/23 18:59 06:59 18:59 Intake Total 0 220.56 0 Balance 0 220.56 0 Weight 43.091 kg Intake: Intake, IV Titration 220.56 Amount Amiodarone 450 mg In 220.56 Dextrose 5% in Water 250 ml @ 0.5 MG/MIN 16.667 mls/hr IV .Q15H [facility] Rx#: [id number] Oral 0 0 0 Other: Voiding Method Toilet Toilet Diaper Diaper Incontinent Incontinent # Voids 2 1 - Labs CBC & Chem 7: 05/23/23 08:01 05/23/23 08:01
--- NOTE | 2023-05-25 17:05 | P.DS ---
Providers Date of admission: 05/20/23 11:19 Expected date of discharge: 05/25/23 Attending physician: Erasmo Cardenas Consults: 05/20/23 11:22 Consult Physician Urgent Consulting Provider: Otoniel Orr Consult Reason/Comments: New onset a-fib, a-fib with RVR Do you want consulting provider notified?: Yes Consult Physician Urgent Consulting Provider: Nadeem Deluna Consult Reason/Comments: Increasing confusion Do you want consulting provider notified?: Yes Primary care physician: Sarina Lazaro [facility] Course: 87-year-old female with a past medical history of hypertension, hyperlipidemia, history of breast cancer is post bilateral mastectomy, recent history of right femoral neck spiral fracture was brought to the hospital by her due to complaints of generalized weakness, confusion. Regarding her patient was mental status has been declining over the past few years and is getting more confused recently. Patient has been sleeping more than normal and is not responding appropriately which is unusual for her. Patient is also having right lower extremity swelling mainly behind the knee. Denied any fever or chills. No cough or sputum production. No nausea vomiting abdominal pain or diarrhea. Denies any chest pain or shortness of breath. Chest x-ray showed no acute cardiopulmonary process. Bilateral full-thickness rotator cuff tears with rotator cuff arthropathy on the right. EKG showed atrial fibrillation with rapid ventricular response. CTA chest showed no evidence of PE. Bilateral breast implants with abnormal appearance of the left breast process possibly relating to intracapsular malfunction. Evidence of chronic granulomatous disease within the spleen liver and lungs and mediastinum. Laboratory data showed sodium 138 potassium 3.8, bicarb is 24 BUN 29 creatinine 1.05, blood sugar is 123, magnesium 1.2 Troponin 0.44, 0.4-1 and 0.429 05/21/2023 : Patient is awake alert but she is confused to time place and partially to personHowever patient denies any specific symptomPatient heart rate was 170 on admission, currently improved down to 90s. Blood pressure 86/58.Patient started on metoprolol 50 mg twice daily by transit authority police officer On heparin drip from emergency room will and Cardizem drip 5 mg. Patient on heparin drip was held, we will defer anticoagulation management to cardiology team B12, folate and TSH are reviewed and they are unremarkable for acute significant abnormality 05/22/23: Patient seen and evaluated bedside. Overnight patient had an acute episode of delirium, blood work reviewed creatinine 1.12 elevated from 0.8, calcium 10.9, patient had paroxysmal tachycardia. Continue on metoprolol Cardizem drip weaned off, as needed IV Lopressor ordered plan of care discussed with at bedside continue with frequent reorientation May 23: I assumed care of the patient today. and daughter at the bedside. states patient chronically does not eat much. She would like to have Ensure. I have ordered vanilla flavor. She would prefer to have soups. Does not eat any meats. Has been up to the bathroom with the help of the . Feeling better. A-fib remains in the 120s. Metoprolol increased to 75 mg 3 times daily. May 24: Tired. at the bedside. Eating a bit better. Heart rate still remains in the 120s. Started on IV amiodarone. Patient's body frame is unlike that of hypothyroid. Cut back Synthroid to 25 mcg daily. May 25: Remains in atrial fibrillation with heart rate controlled. Discussed with patient and . Cleared by cardiology. Will be sent home on the current dose of/reduced dose of Synthroid. Follow-up with cardiology Care was discussed with the patient and the . Discussion and discharge planning more than 35 minutes On examination: VITAL SIGNS: 96.9, 107, 20, 147 x 98, 96% room air GENERAL APPEARANCE: BMI 18.6, thin build, loss of subcutaneous fat and muscle. Laying in bed HEENT: Normal external appearance of nose and ear. Oral cavity normal EYES: Pupils equal. Conjunctiva normal. NECK: JVD not raised. Mass not palpable. RESPIRATORY: Respiratory effort normal. Lungs clear to auscultation. CARDIOVASCULAR: Heart sounds irregular. No edema. ABDOMEN: Soft. Liver and spleen not palpable. No tenderness. No mass palpable. MUSCULOSKELETAL: Evidence of OA PSYCHIATRY: Able to answer simple questions. Tired INVESTIGATIONS, reviewed in the clinical context: May 23: White count 9.9 hemoglobin 11.6 platelets 393 sodium 135 potassium 4.4 BUN 24 creatinine 0.99 Troponin I 0.429 Albumin 3.2 TSH 2.8 Assessment and plan -New onset atrial fibrillation with rapid ventricular response: Better controlled Being followed by cardiology Phillip. Lopressor 75 mg 3 times daily -Moderate calorie protein malnutrition Ensure. Diet encouraged -Acute metabolic encephalopathy secondary to JESSICA: Better -Acute renal failure, likely prerenal from decreased oral intake -Medical asthenia secondary to dehydration and uncontrolled A-fib -Elevated troponin level likely due to A-fib with RVR/demand ischemia. -Hypothyroid, could be clinically over replaced Cut back Synthroid to 25 mcg a day -Hypercalcemia likely due to dehydration. -Essential hypertension Lopressor Hyperlipidemia Lipitor -History of breast cancer status post bilateral mastectomy -Full code Disposition: Home Plan - Discharge Summary New Discharge Prescriptions: New Metoprolol Tartrate [Lopressor] 75 mg PO TID #90 tab Apixaban [Eliquis] 2.5 mg PO BID #60 tab Continue Atorvastatin [Lipitor] 20 mg PO DAILY Famotidine [Pepcid] 20 mg PO DAILY Estrogen,Con/M-Progest Acet [Prempro 0.3 mg-1.5 mg Tablet] 0.5 tab PO DAILY Changed Levothyroxine Sodium [Synthroid] 25 mcg PO DAILY #0 Discontinued Losartan [Cozaar] 50 mg PO DAILY Levothyroxine Sodium [Synthroid] 50 mcg PO Q2D Discharge Medication List Atorvastatin [Lipitor] 20 mg PO DAILY 06/07/22 [History] Estrogen,Con/M-Progest Acet [Prempro 0.3 mg-1.5 mg Tablet] 0.5 tab PO DAILY 06/07/22 [History] Famotidine [Pepcid] 20 mg PO DAILY 06/07/22 [History] Apixaban [Eliquis] 2.5 mg PO BID #60 tab 05/25/23 [Rx] Levothyroxine Sodium [Synthroid] 25 mcg PO DAILY #0 05/25/23 [Rx] Metoprolol Tartrate [Lopressor] 75 mg PO TID #90 tab 05/25/23 [Rx] Follow up Appointment(s)/Referral(s): Maicol Galaviz MD [STAFF PHYSICIAN] - 1 Week (OFFICE WILL CALL WITH FOLLOW UP APPOINMENT DATE. IF DO NOT HEAR FROM THEM BY AFTERNOON PLEASE CALL THEM) Sarina Schroeder DO [Primary Care Provider] - 06/02/23 8:00 am [facility], [NON-STAFF] - Patient Instructions/Handouts: A-fib (Atrial Fibrillation) (DC) Discharge Disposition: HOME SELF-CARE
[2023-05-26] MEDS ORDERED: LEVOTHYROXINE 25 MCG TAB PO SCH (06:30)
== END 2023-05-25 14:40 | disposition home or self-care (01) | DRG 308 ==
LOC: EC 08:55 → 3SCARD 11:19 → 3NCARDOBS 05-23 22:55 → 3SCARD 05-23 22:58
PROVIDERS: ADMIT Hospitalist; ATTEND Hospitalist
DX: I48.19 Other persistent atrial fibrillation (principal); G93.41 Metabolic encephalopathy; E44.0 Moderate protein-calorie malnutrition; N17.9 Acute kidney failure, unspecified; I24.89 Other forms of acute ischemic heart disease; F05 Delirium due to known physiological condition; F03.911 Unspecified dementia, unspecified severity, with agitation; Z68.1 Body mass index [BMI] 19.9 or less, adult; D71 Functional disorders of polymorphonuclear neutrophils; I47.9 Paroxysmal tachycardia, unspecified; E03.9 Hypothyroidism, unspecified; I10 Essential (primary) hypertension; E86.0 Dehydration; E78.5 Hyperlipidemia, unspecified; M79.89 Other specified soft tissue disorders; E83.42 Hypomagnesemia; M75.121 Complete rotator cuff tear or rupture of right shoulder, not specified as traumatic; H91.90 Unspecified hearing loss, unspecified ear; E83.52 Hypercalcemia; Z85.3 Personal history of malignant neoplasm of breast; Z90.13 Acquired absence of bilateral breasts and nipples; Z79.890 Hormone replacement therapy; Z79.899 Other long term (current) drug therapy; Z88.5 Allergy status to narcotic agent; Z98.82 Breast implant status
CPT/HCPCS: 36415; 71046; 71275; 80048; 80053; 80061; 81001; 82607; 82746; 83036; 83605; 83735; 84100; 84443; 84484; 85025; 85027; 85379; 85610; 85730; 93005; 93970; 96365; 96366; 96368; 96375; 99291

== ENCOUNTER 2023-06-30 09:06 | Day surgery (SDC) | payer MEDICARE, BC ==
[2023-06-23 16:41] VITALS: BMI 17.6
[2023-06-30] MEDS: SODIUM CHLORIDE 0.9% 1,000 ML IV SCH (10:09)
[2023-06-30 10:19] VITALS: TEMP 97
[2023-06-30] MEDS ORDERED: PROPOFOL 10 MG/ML 20 ML VIAL IV ONE (10:28)
[2023-06-30 10:31] LABS: African American GFR (CKD) >90 (>60 ml/min/1.73 sqM); Anion Gap 12 mmol/L; Blood Urea Nitrogen 32 mg/dL (7-17); Calcium 9.8 mg/dL (8.4-10.2); Carbon Dioxide 17 mmol/L (22-30); Chloride 107 mmol/L (98-107); Glucose 107 mg/dL (74-99); Non-African American GFR(CKD) 80 (>60 ml/min/1.73 sqM); Sodium 136 mmol/L (137-145)
[2023-06-30 10:34] LABS: Potassium 4.6 mmol/L (3.5-5.1)
[2023-06-30] MEDS ORDERED: METOPROLOL TARTRATE 25 MG TAB PO STA (10:40)
--- NOTE | 2023-06-30 11:12 | CE ---
CARDIAC ELECTROPHYSIOLOGY REPORT PROCEDURE PERFORMED: Electrical cardioversion. INDICATION: Persistent symptomatic atrial fibrillation with moderately rapid ventricular rate. CLINICAL INFORMATION: Ms. Keysha Yoder is an 87-year-old lady with a history of hypertension, hyperlipidemia, recent onset persistent atrial fibrillation with a moderately rapid ventricular rate. She has been adequately anticoagulated for more than 4 weeks. She was advised electrical cardioversion. Risks, benefits, options and rationale were explained. The patient was brought in for the procedure electively. PROCEDURE NOTE: Under the influence of [id number] intravenous anesthetic agent with the attendance of the anesthesiologist, a single shock of 120 joules was delivered to the chest wall with anterior and posterior patches. She converted to sinus rhythm and remained neurologically intact and hemodynamically stable. This was a successful electrical cardioversion. The patient will be discharged on amiodarone 200 mg b.i.d. for 1 month and metoprolol tartrate additional dose of 25 mg will be given today and I will see her in about a week or less. Discharge instructions were given. I spoke to the patient and . She will be discharged later on today. MMODL / IJN: [id number] /
[2023-06-30 11:40] VITALS: RESP 16
[2023-06-30] MEDS: AMIODARONE 200 MG TAB PO SCH (11:50)
--- NOTE | 2023-06-30 13:00 | CA ---
Transthoracic Echo Report Name: Keysha Yoder Age: 87 Gender: F : 1935 Exam Date: 06/30/2023 10:54 Exam Location: [place] [facility] Ht (in): 60 Wt (lb): 91 Ordering Physician: Maicol Galaviz MD ([id number]) Attending/Referring Phys: [employer] Superintendent Colleen Baldwin RCS Procedure CPT: Indications: evaluate LV function Cardiac Hx: Technical Quality: Technically difficult study Contrast 1: Definity Total Dose (mL): 2 Contrast 2: Total Dose (mL): MEASUREMENTS (Male / Female) Normal Values 2D ECHO LV Diastolic Diameter PLAX 3.3 cm 4.2 - 5.9 / 3.9 - 5.3 cm LV Systolic Diameter PLAX 2.5 cm IVS Diastolic Thickness 0.6 cm 0.6 - 1.0 / 0.6 - 0.9 cm LVPW Diastolic Thickness 0.9 cm 0.6 - 1.0 / 0.6 - 0.9 cm LV Relative Wall Thickness 0.5 RV Internal Dim ED PLAX 2.8 cm LVOT Diameter 1.8 cm LV Diastolic Volume MOD BP 38.9 cm??? 67 - 155 / 56 - 104 cm??? LV Systolic Volume MOD BP 18.8 cm??? 22 - 58 / 19 - 49 cm??? LV Ejection Fraction MOD BP 51.5 % >= 55 % LV Cardiac Index MOD BP 928.4 cm???/min???m??? LV Diastolic Volume MOD 4C 39.8 cm??? LV Systolic Volume MOD 4C 17.7 cm??? LV Ejection Fraction MOD 4C 55.6 % LV Cardiac Index MOD 4C 1026.5 cm???/min???m??? LV Diastolic Length 4C 6.0 cm LV Systolic Length 4C 5.1 cm LV Diastolic Volume MOD 2C 37.8 cm??? LV Systolic Volume MOD 2C 19.9 cm??? LV Ejection Fraction MOD 2C 47.3 % LV Cardiac Index MOD 2C 828.3 cm???/min???m??? LV Diastolic Length 2C 5.9 cm LV Systolic Length 2C 5.1 cm LA Volume 49.5 cm??? 18 - 58 / 22 - 52 cm??? LA Volume Index 37.6 cm???/m??? 16 - 28 cm???/m??? Ascending Aorta Diameter 2.2 cm DOPPLER AV Peak Velocity 130.8 cm/s AV Peak Gradient 6.8 mmHg AV Mean Velocity 96.6 cm/s AV Mean Gradient 4.1 mmHg AV Velocity Time Integral 32.2 cm TR Peak Velocity 221.7 cm/s TR Peak Gradient 19.7 mmHg Right Ventricular Systolic Press 34.7 mmHg PV Peak Velocity 40.1 cm/s PV Peak Gradient 0.6 mmHg FINDINGS Left Ventricle Left ventricular ejection fraction is estimated at 45-50 %. Mildly decreased left ventricular ejection fraction. Left ventricular cavity size normal. Left ventricular wall thickness normal. No obvious regional wall motion abnormalities. Right Ventricle Normal right ventricular size with mild to moderately reduced function. Right ventricular systolic pressure within normal limits. Right Atrium Moderate right atrial dilatation. Left Atrium Moderately increased left atrial volume. Mitral Valve Mitral valve thickened. Mitral annular calcification. No evidence for mitral valve prolapse. No mitral stenosis. Trace mitral regurgitation. Aortic Valve Aortic valve not well visualized. No aortic valve stenosis or regurgitation. Tricuspid Valve Structurally normal tricuspid valve. No tricuspid stenosis. Mild tricuspid regurgitation. Pulmonic Valve Pulmonic valve not well visualized. No pulmonic stenosis. Trace pulmonic regurgitation. Pericardium No pericardial effusion. Aorta Normal size aortic root and proximal ascending aorta. CONCLUSIONS Left ventricular ejection fraction 45-50% No mitral regurgitation Moderately dilated left and right atrium Mild tricuspid regurgitation No pericardial effusion Previewed by: Dr. Otoniel Orr DO (Electronically Signed) Final Date: 30 June 2023 12:59
[2023-06-30 13:02] VITALS: PULSE 56
[2023-06-30 13:41] VITALS: BP 136/73
== END 2023-06-30 13:06 | disposition home or self-care (01) ==
LOC: OR 09:06
PROVIDERS: ATTEND Internal Medicine Interventional Cardiology
DX: I08.1 Rheumatic disorders of both mitral and tricuspid valves (principal); I48.19 Other persistent atrial fibrillation; I10 Essential (primary) hypertension; E78.5 Hyperlipidemia, unspecified; F03.90 Unspecified dementia, unspecified severity, without behavioral disturbance, psychotic disturbance, mood disturbance, and anxiety; E07.9 Disorder of thyroid, unspecified; Z85.3 Personal history of malignant neoplasm of breast; Z79.01 Long term (current) use of anticoagulants; Z79.899 Other long term (current) drug therapy; Z79.890 Hormone replacement therapy
CPT/HCPCS: 92960; 80048; C8929; Q9957; J2704; 93306